=== PATIENT | female | born 1945 ===

== ENCOUNTER 2017-05-15 08:17 | Day surgery (SDC) | payer MEDICARE, MEDICAID ==
[2017-03-29 17:35] VITALS: BMI 34.6
[2017-05-15] MEDS ORDERED: Lactated Ringer's 1,000 ML IV ONE (08:30)
[2017-05-15] MEDS ORDERED: Midazolam 2 MG/2 ML VIAL ONE (09:08)
[2017-05-15] MEDS ORDERED: Propofol 10 mg/ml Inj (20 ML) ONE (09:08)
[2017-05-15 11:03] VITALS: BP 149/96; PULSE 96; RESP 18; TEMP 99; O2SAT 97
[2017-05-15] MEDS ORDERED: Iohexol 300 100 ML IJ ONE (14:00)
[2017-05-15] MEDS ORDERED: Sodium Chloride 0.9% 50 ML IV ONE (14:00)
== END 2017-05-15 11:00 | disposition home or self-care (01) ==
LOC: H.ENDO 08:17
PROVIDERS: ATTEND Internal Medicine Gastroenterology
DX: Z12.11 Encounter for screening for malignant neoplasm of colon (principal); D12.2 Benign neoplasm of ascending colon; K64.8 Other hemorrhoids
CPT/HCPCS: 45380; 88305; J2250; J2704; J7120; Q9967

== ENCOUNTER 2017-05-15 11:20 | Observation (INO) | payer MEDICARE, MEDICAID ==
[2017-05-15 11:20] VITALS: BMI 34.6
--- NOTE | 2017-05-15 11:41 | CP.PCM.CON ---
<Sofiya Lang - Last Filed: 05/15/17 13:32> History of Present Illness - History of Present Illness History of Present Illness: GI Fellow PGY4 Consult Note This is a 71yF with pmhx of HTN, HL, DM who initially presented to the GI office for change in bowel habits and dysphagia. Pt underwent a EGD/Colonoscopy today 05/15/17, EGD with gastritis, in colon there was a narrowing of the colon in association with the diverticular opening. A diverticulum with fat and muscle was seen. Three resolution clips were placed to close the opening. Procedure was aborted and pt was transferred to the ER after waking up from Anesthesia in post-op area. Pt was hemodynamically stable with no complaints of abdominal or back pain. Discussed results with patient and need for further workup and inpatient care. ROS: A 12pt ROS was negative except as above. PmHx: As stated in HPI PsHx: None SHx: Denies tobacco, alcohol, or drugs FHx: Denies colon cancer Past Patient History - Past Medical History & Family History Past Medical History?: Yes - Past Social History Smoking Status: Never Smoked - CARDIAC Hx Cardiac Disorders: Yes Hx Hypercholesterolemia: Yes Hx Hypertension: Yes - PULMONARY Hx Asthma: Yes - NEUROLOGICAL Hx Neurological Disorder: No - HEENT Hx HEENT Problems: No - RENAL Hx Chronic Kidney Disease: No - ENDOCRINE/METABOLIC Hx Endocrine Disorders: Yes Hx Diabetes Mellitus Type 2: Yes - HEMATOLOGICAL/ONCOLOGICAL Hx Blood Disorders: Yes Hx Cancer: (CERVICAL WITH RT) - INTEGUMENTARY Hx Dermatological Problems: No - MUSCULOSKELETAL/RHEUMATOLOGICAL Hx Arthritis: Yes (LOW BACK; KNEES; HANDS) Hx Osteoporosis: Yes (VIT D DEF. AWAITING BONE DENSITY) - GASTROINTESTINAL Hx Gastrointestinal Disorders: Yes Hx Hemorrhoids: Yes HX Swallowing Problems: Yes Hx Ulcer: Yes - GENITOURINARY/GYNECOLOGICAL Hx Genitourinary Disorders: Yes Hx Cervical Cancer: Yes Hx Incontinence: Yes (FREQUENCY) - PSYCHIATRIC Hx Substance Use: No - SURGICAL HISTORY Hx Surgeries: Yes Hx Hysterectomy: Yes - ANESTHESIA Hx Anesthesia: Yes Hx Anesthesia Reactions: No Hx Malignant Hyperthermia: No Meds Allergies/Adverse Reactions: Allergies Allergy/AdvReac Type Severity Reaction Status Date / Time Penicillins Allergy VOMITING Verified 05/15/17 08:39 sitagliptin [From Januvia] Allergy VOMITING Verified 05/15/17 08:39 Physical Exam - Constitutional Appears: Non-toxic, No Acute Distress - Head Exam Head Exam: ATRAUMATIC, NORMAL INSPECTION, NORMOCEPHALIC - Eye Exam Eye Exam: EOMI, Normal appearance, PERRL Pupil Exam: PERRL - ENT Exam ENT Exam: Mucous Membranes Moist, Normal Exam - Neck Exam Neck exam: Positive for: Normal Inspection - Respiratory Exam Respiratory Exam: Clear to Auscultation Bilateral, NORMAL BREATHING PATTERN - Cardiovascular Exam Cardiovascular Exam: REGULAR RHYTHM, RRR - GI/Abdominal Exam GI & Abdominal Exam: Normal Bowel Sounds, Soft. absent: Distended, Guarding, Rigid, Tenderness - Rectal Exam Rectal Exam: Deferred - Extremities Exam Extremities exam: Positive for: full ROM, normal inspection - Back Exam Back exam: NORMAL INSPECTION - Neurological Exam Neurological exam: Alert, Oriented x3 - Psychiatric Exam Psychiatric exam: Normal Affect, Normal Mood - Skin Skin Exam: Dry, Intact, Normal Color, Warm Results - Labs Result Diagrams: 05/15/17 12:43 05/15/17 12:43 Assessment & Plan - Assessment and Plan (Free Text) Assessment: This is a 71yF who presented for EGD/Colonoscopy as an outpatient found to have perforated diverticulum s/p 3 clips. 1. Perforated diverticulum s/p 3 clips 2. s/p EGD with gastritis Plan: -Continue supportive care with pain control and anti-emetics -Pt clinically stable with no abdominal pain, fevers, chills, no leukocytosis -Recommend IV abx -NPO -CT imaging of abdomen -Surgical consult for further evaluation and recommendations -Monitor labs and if any change in clinical status may need to be evaluated for surgical intervention -Will continue to follow closely <Della Barker MD - Last Filed: 05/15/17 16:53> Meds - Medications Medications: Current Medications Lactated Ringer's (Lactated Ringer's) 1,000 mls @ 100 mls/hr IV .Q10H [facility] Last Admin: 05/15/17 14:05 Dose: 100 mls/hr Ciprofloxacin (Cipro 400mg/200ml Dsw) 400 mg in 200 mls @ 200 mls/hr IVPB Q12 ROX PRN Reason: Protocol Metronidazole (Flagyl 500mg/100ml Ns) 100 mls @ 100 mls/hr IVPB Q8 ROX PRN Reason: Protocol Results - Vital Signs Recent Vital Signs: Last Vital Signs Temp 98.1 F 05/15/17 11:39 Pulse 87 05/15/17 11:39 Resp 19 05/15/17 11:39 BP 124/68 05/15/17 11:39 Pulse Ox 99 05/15/17 14:59 - Labs Result Diagrams: 05/15/17 12:43 05/15/17 12:43 Labs: Laboratory Results - last 24 hr 05/15/17 05/15/17 05/15/17 12:43 12:43 13:48 WBC 6.5 RBC 4.74 Hgb 13.0 Hct 39.7 MCV 83.7 MCH 27.5 MCHC 32.9 L RDW 16.0 H Plt Count 197 MPV 8.6 Neut % (Auto) 74.8 Lymph % (Auto) 15.0 L [place] % (Auto) 8.4 Eos % (Auto) 1.4 Baso % (Auto) 0.4 Neut # (Auto) 4.8 Lymph # (Auto) 1.0 [place] # (Auto) 0.5 Eos # (Auto) 0.1 Baso # (Auto) 0.0 Sodium 144 Potassium 3.8 Chloride 104 Carbon Dioxide 27 Anion Gap 17 BUN 11 Creatinine 0.5 L Est GFR ( Amer) > 60 Est GFR (Non-Af Amer) > 60 Random Glucose 134 H Calcium 9.5 Total Bilirubin 0.5 AST 50 H ALT 72 H Alkaline Phosphatase 60 Troponin I < 0.0120 Total Protein 7.7 Albumin 4.2 Globulin 3.5 Albumin/Globulin Ratio 1.2 Amylase 90 Lipase 55 Urine Color Yellow Urine Clarity Slighty-cloudy Urine pH 6.0 Ur Specific [place] 1.022 Urine Protein 100 Urine Glucose (UA) >=500 Urine Ketones Trace Urine Blood Negative Urine Nitrate Negative Urine Bilirubin Negative Urine Urobilinogen 0.2-1.0 Ur Leukocyte Esterase Neg Urine RBC (Auto) 5 H Urine Microscopic WBC 9 H Ur Squamous Epith Cells 1 Attending/Attestation - Attestation I have personally seen and examined this patient.: Yes I have fully participated in the care of the patient.: Yes I have reviewed all pertinent clinical information: Yes Notes (Text): 05/15/17 16:37 Patient seen in ER after colonoscopy. In a nutshell this is a 71 year old female , with a past medical history of diabetes, gastrointestinal ulcer, cervical CA and hypertension, who presented as outpatient for polyp surveillance and chronic abdominal pain. Colonoscopy was technically difficult with redundant colon. A colonoscopy in 2014 had similar findings. Multiple maneuvers with extrinsic pressure, and position change did not help to pass recto sigmoid area. A mucosal defect was seen during traversing the scope in recto sigmoid which was closed with 3 resolution clips. Patient was sent to the ER for Ct abdomen which shows intra peritoneal air. Patient denies any fever, chills, chest pain, shortness of breath or urinary symptoms. No fever and hemodynamically stable. Denies abdominal pain or tenderness. - Will admit to watch for 24 hours - Continue IV ciprofloxacin and flagyl - Trend daily fever and wbc curve - Clear liquid diet today - Appreciate prompt surgical consult - no indication for ex lap - Discussed in detail regarding the procedure and complication with patient and family member - Will follow clinical course closely
[2017-05-15] MEDS ORDERED: Ciprofloxacin 400mg/200ml D5W 400 MG/200 ML BAG IVPB STA (12:03)
[2017-05-15] MEDS ORDERED: metroNIDAZOLE 500mg/100ml NS 100 ML IVPB STA (12:03)
--- NOTE | 2017-05-15 12:38 | ED PDOC ---
HPI: Abdomen Time Seen by Provider: 05/15/17 11:58 Chief Complaint (Nursing): Abdominal Pain Chief Complaint (Provider): Abdominal pain History Per: Patient History/Exam Limitations: no limitations Onset/Duration Of Symptoms: Hrs (today) Current Symptoms Are (Timing): Still Present Quality Of Discomfort: "Pain" Associated Symptoms: denies: Fever, Chills, Chest Pain, Urinary Symptoms, Other (SOB) Additional Complaint(s): Janette Villa is a 71 year old female, with a past medical history of diabetes , gastrointestinal ulcer, cervical CA and hypertension, who was sent to the emergency department by Dr. Barker from endoscopy for abdominal pain. Patient denies any fever, chills, chest pain, shortness of breath or urinary symptoms. No further medical complaints. PMD: None provided. Past Medical History Reviewed: Historical Data, Nursing Documentation, Vital Signs Vital Signs: Last Vital Signs Temp 98.1 F 05/15/17 11:39 Pulse 87 05/15/17 11:39 Resp 19 05/15/17 11:39 BP 124/68 05/15/17 11:39 Pulse Ox 99 05/15/17 14:59 - Medical History PMH: Arthritis (LOW BACK; KNEES; HANDS), Asthma, Diabetes, Gastrointestinal Ulcer, HTN, Hypercholesterolemia, Malignancy (Cervical Cancer (20 years ago)), Osteoporosis (VIT D DEF. AWAITING BONE DENSITY) Denies: Chronic Kidney Disease - Surgical History Surgical History: Cholecystectomy, Endoscopy (5 years ago) - Family History Family History: States: Unknown Family Hx - Social History Current smoker - smoking cessation education provided: No Alcohol: None Drugs: Denies - Immunization History Hx Tetanus Toxoid Vaccination: No Hx Influenza Vaccination: No Hx Pneumococcal Vaccination: No (UNSURE of last vaccine date) - Home Medications Home Medications: Ambulatory Orders Medication Instructions Recorded MetFORMIN [glucoPHAGE] 1,000 mg PO BID 07/13/13 Atorvastatin [Lipitor] 40 mg PO HS 05/15/17 Cyanocobalamin [Vitamin B12 1000 1 tab PO DAILY 05/15/17 mcg Tab] Dulaglutide [Trulicity] 0.75 mg SC WE 05/15/17 Empagliflozin [Jardiance] 10 mg PO DAILY 05/15/17 Glimepiride [amaRYL] 4 mg PO DAILY 05/15/17 Insulin Glargine,Hum.rec.anlog 50 unit SC DAILY 05/15/17 [[place] Hailenallelyar] Lactobacillus Combination No.8 1 cap PO DAILY 05/15/17 [Adult Probiotic] Magnesium Oxide [Magox 400] 1 tab PO DAILY 05/15/17 [place]-3 Fatty Acids/Fish Oil [Fish 1 cap PO DAILY 05/15/17 Oil 1,000 mg Capsule] Omeprazole [Omeprazole] 40 mg PO DAILY 05/15/17 Tolterodine [Detrol] 2 mg PO BID 05/15/17 amLODIPine [Norvasc] 5 mg PO DAILY 05/15/17 - Allergies Allergies/Adverse Reactions: Allergies Allergy/AdvReac Type Severity Reaction Status Date / Time Penicillins Allergy VOMITING Verified 05/15/17 08:39 sitagliptin [From Januvia] Allergy VOMITING Verified 05/15/17 08:39 Review of Systems ROS Statement: Except As Marked, All Systems Reviewed And Found Negative Constitutional: Negative for: Fever, Chills Cardiovascular: Negative for: Chest Pain Respiratory: Negative for: Shortness of Breath Gastrointestinal: Positive for: Abdominal Pain Genitourinary Female: Negative for: Dysuria, Frequency, Incontinence Physical Exam - Reviewed Nursing Documentation Reviewed: Yes Vital Signs Reviewed: Yes - Physical Exam Appears: Positive for: Non-toxic Head Exam: Positive for: ATRAUMATIC, NORMAL INSPECTION, NORMOCEPHALIC Skin: Positive for: Normal Color, Warm, Dry Eye Exam: Positive for: Normal appearance, EOMI, PERRL Neck: Positive for: Painless ROM, Supple Cardiovascular/Chest: Positive for: Regular Rate, Rhythm. Negative for: Murmur Respiratory: Positive for: Normal Breath Sounds. Negative for: Respiratory Distress Gastrointestinal/Abdominal: Positive for: Soft, Other (prev vertical suprapubic scar). Negative for: Tenderness, Organomegaly, Mass, Distended, Guarding Back: Positive for: Normal Inspection. Negative for: L CVA Tenderness, R CVA Tenderness, Vertebral Tenderness Extremity: Positive for: Normal ROM. Negative for: Tenderness, Pedal Edema, Deformity, Swelling Neurologic/Psych: Positive for: Alert, Oriented (x3) - Laboratory Results Result Diagrams: 05/15/17 12:43 05/15/17 12:43 - ECG O2 Sat by Pulse Oximetry: 99 (RA) Pulse Ox Interpretation: Normal - Progress ED Course And Treament: per hospitalist will admit to ms floor. surgery consulted advise antibiotics and no other intervention at this time. repeat abds exam revelas no tenderness. pt agree's with plan. Re-evaluation Time: 15:00 Condition: Re-examined Medical Decision Making Medical Decision Making: Initial Impression: Abdominal pain Initial Plan: --Abdomen & Pelvis IV contrast only [CT] --EKG --Amylase --CMP --Lipase --Troponin I --CBC w/ differential --Cipro 400mg/200 ml DSW 400 mg in 200 ml IVPB --Flagyl 500mg/100 ml NS 100 ml IVPB --Urine culture --Urinalysis --reevaluation --Contacted residential director who evaluated the patient and advised her to get a CT with IV contrast only. 13:56 CXR FINDINGS: LUNGS: Clear. PLEURA: No pneumothorax or pleural fluid seen. CARDIOVASCULAR: Normal. OSSEOUS STRUCTURES: Degenerative changes. VISUALIZED UPPER ABDOMEN: Right upper quadrant surgical clips. OTHER FINDINGS: None. IMPRESSION: No active disease. No appreciable free intraperitoneal air. 14:48 Abdomen/Pelvis CT FINDINGS: LOWER THORAX: Unremarkable. LIVER: Hepatic steatosis. No gross lesion or ductal dilatation. GALLBLADDER AND BILE DUCTS: Prior cholecystectomy with surgical clips in place and expected prominence of the CBD. PANCREAS: Unremarkable. No gross lesion or ductal dilatation. SPLEEN: Unremarkable. ADRENALS: Unremarkable. No mass. KIDNEYS AND URETERS: Unremarkable. No hydronephrosis. No solid mass. VASCULATURE: Unremarkable. No aortic aneurysm. BOWEL: Surgical clips seen in the sigmoid. No obstruction. No gross mural thickening. APPENDIX: Not visualized. PERITONEUM: Unremarkable. No free fluid. Moderate amount of free intraperitoneal air. LYMPH NODES: Pelvic lymph node dissection. No enlarged lymph nodes. BLADDER: Unremarkable. REPRODUCTIVE: Surgically absent. BONES: No acute fracture. OTHER FINDINGS: None. IMPRESSION: Moderate amount of free intraperitoneal and retroperitoneal air post colonoscopy. Given the reported perforated diverticulum seen on optical colonoscopy status post clip placement, the findings are nonspecific and may represent acute perforation versus insufflated air leaking through perforated diverticulum prior to closure. Additional findings as above. Findings conveyed to Dr. Meyer by Dr. De La Rosa shortly after completion of the examination. Scribe Attestation: Documented by Cristo Domingo, acting as a scribe for Yoni Meyer MD Provider Scribe Attestation: All medical record entries made by the Scribe were at my direction and personally dictated by me. I have reviewed the chart and agree that the record accurately reflects my personal performance of the history, physical exam, medical decision making, and the department course for this patient. I have also personally directed, reviewed, and agree with the discharge instructions and disposition. Disposition - Clinical Impression Clinical Impression: Abdominal pain, Large bowel perforation - Patient ED Disposition Is Patient to be Admitted: No Counseled Patient/Family Regarding: Studies Performed, Diagnosis, Need For Followup - Disposition Disposition Time: 15:00 Condition: STABLE - Pt Status Changed To: Hospital Disposition Of: Inpatient - Admit Certification Admit to Inpatient:: After my assessment, the patient will require hospitalization for at least two midnights. This is because of the severity of symptoms shown, intensity of services needed, and/or the medical risk in this patient being treated as an outpatient. - POA Present On Arrival: None
[2017-05-15 12:53] LABS: BASO % 0.4 % (0.0-2.0); EOS # 0.1 K/uL (0.0-0.7); EOS % 1.4 % (0.0-4.0); MEAN CELL VOLUME 83.7 fl (81.0-99.0); MEAN CORPUSCULAR HEMOGLOBIN 27.5 pg (27.0-31.0); MEAN CORPUSCULAR HGB CONC 32.9 g/dL (33.0-37.0); MEAN PLATELET VOLUME 8.6 fl (7.2-11.7); MONO # 0.5 K/uL (0.0-0.8); MONO % 8.4 % (0.0-10.0); NEUT # 4.8 K/uL (1.8-7.0); NEUT % 74.8 % (50.0-75.0); NRBC % 0.1 % (0.0-0.0); RBC 4.74 Mil/uL (3.80-5.20); WHITE BLOOD COUNT 6.5 K/uL (4.8-10.8)
[2017-05-15 13:09] LABS: ALB/GLOB RATIO 1.2 (1.0-2.1); ALBUMIN 4.2 g/dL (3.5-5.0); ALT/SGPT 72 U/L (9-52); AMYLASE 90 U/L (30-110); AST/SGOT 50 U/L (14-36); BLOOD UREA NITROGEN 11 mg/dl (7-17); CALCIUM 9.5 mg/dL (8.4-10.2); GFR AFRICAN-AMERICAN > 60; GFR NON-AFRICAN AMERICAN > 60; LIPASE 55 U/L (23-300)
--- NOTE | 2017-05-15 13:58 | RAD ---
PROCEDURE: CHEST RADIOGRAPH, 1 VIEW HISTORY: eval for free air under diaphragm COMPARISON: None available. FINDINGS: LUNGS: Clear. PLEURA: No pneumothorax or pleural fluid seen. CARDIOVASCULAR: Normal. OSSEOUS STRUCTURES: Degenerative changes. VISUALIZED UPPER ABDOMEN: Right upper quadrant surgical clips. OTHER FINDINGS: None. IMPRESSION: No active disease. No appreciable free intraperitoneal air.
[2017-05-15 13:59] LABS: SQUAMOUS EPITHIAL 1 /hpf (0-5); URINE BILIRUBIN NEGATIVE (NEGATIVE); URINE BLOOD NEGATIVE (NEGATIVE); URINE CLARITY SLIGHTY-CLOUDY (Clear); URINE COLOR YELLOW (YELLOW); URINE GLUCOSE (UA) >=500 mg/dL (Normal); URINE LEUKOCYTE ESTERASE NEG Leu/uL (Negative); URINE NITRATE NEGATIVE (NEGATIVE); URINE PROTEIN 100 mg/dL (NEGATIVE); URINE UROBILINOGEN 0.2-1.0 mg/dL (0.2-1.0)
[2017-05-15] MEDS: Lactated Ringer's 1,000 ML IV SCH ×2 (14:05→23:20)
--- NOTE | 2017-05-15 14:31 | CARD ---
APPROVED REPORT EKG Measurement Heart [id number] <Conclusion> Normal sinus rhythm Normal ECG
[2017-05-15] MEDS ORDERED: metroNIDAZOLE 500mg/100ml NS 100 ML IVPB ONE ×2 (14:37→18:23)
[2017-05-15] MEDS ORDERED: Ciprofloxacin 400mg/200ml D5W 400 MG/200 ML BAG IVPB ONE (14:37)
--- NOTE | 2017-05-15 14:50 | CT ---
PROCEDURE: CT Abdomen and Pelvis with contrast HISTORY: abd pain llq possible perf on colonoscopy. Reported perforated diverticulum seen on colonoscopy. COMPARISON: None. TECHNIQUE: Contrast dose: 100 cc Omnipaque 300 Radiation dose: Total exam DLP = 901.1 mGy-cm. This CT exam was performed using one or more of the following dose reduction techniques: Automated exposure control, adjustment of the mA and/or kV according to patient size, and/or use of iterative reconstruction technique. FINDINGS: LOWER THORAX: Unremarkable. LIVER: Hepatic steatosis. No gross lesion or ductal dilatation. GALLBLADDER AND BILE DUCTS: Prior cholecystectomy with surgical clips in place and expected prominence of the CBD. PANCREAS: Unremarkable. No gross lesion or ductal dilatation. SPLEEN: Unremarkable. ADRENALS: Unremarkable. No mass. KIDNEYS AND URETERS: Unremarkable. No hydronephrosis. No solid mass. VASCULATURE: Unremarkable. No aortic aneurysm. BOWEL: Surgical clips seen in the sigmoid. No obstruction. No gross mural thickening. APPENDIX: Not visualized. PERITONEUM: Unremarkable. No free fluid. Moderate amount of free intraperitoneal air. LYMPH NODES: Pelvic lymph node dissection. No enlarged lymph nodes. BLADDER: Unremarkable. REPRODUCTIVE: Surgically absent. BONES: No acute fracture. OTHER FINDINGS: None. IMPRESSION: Moderate amount of free intraperitoneal and retroperitoneal air post colonoscopy. Given the reported perforated diverticulum seen on optical colonoscopy status post clip placement, the findings are nonspecific and may represent acute perforation versus insufflated air leaking through perforated diverticulum prior to closure. Additional findings as above. Findings conveyed to Dr. Meyer by Dr. De La Rosa shortly after completion of the examination.
--- NOTE | 2017-05-15 15:06 | CP.PCM.CON ---
History of Present Illness - History of Present Illness History of Present Illness: General Surgery Consult Note - Dr. Millan 71 y/o female with PMHx of diabetes, cervical cancer, OA and asthma seen at bedside after surgery team consulted for evaluation and management of a perforated sigmoid colon. Pt states she came today for a routine colonoscopy and was informed that part of her colon had a hole in it. Pt admits to mild- moderate RLQ abdominal pain that radiates to the back. She admits to having this pain for approx 1 year, stating she saw a doctor for it but nothing was done to address it. Pt states she has this pain when she goes from sitting to standing and vice versa, but says it is not tender to touch. Denies any F/C/N/V/ CP. Admits to constipation which is chronic in nature. Admits to urinary incontinence, which she has had for 10+ years. PSH: cholecystectomy, tubal ligation, surgical removal of cervix s/p cancer All: PCNs, sitagliptin Soc: denies EtOH, cigarette or illicit drug use Review of Systems - Review of Systems All systems: reviewed and no additional remarkable complaints except (per HPI) Past Patient History - Infectious Disease Hx of Infectious Diseases: None - Past Medical History & Family History Past Medical History?: Yes - Past Social History Alcohol: None Drugs: Denies - CARDIAC Hx Hypercholesterolemia: Yes Hx Hypertension: Yes - PULMONARY Hx Asthma: Yes - NEUROLOGICAL Hx Neurological Disorder: No - HEENT Hx HEENT Problems: No - RENAL Hx Chronic Kidney Disease: No - ENDOCRINE/METABOLIC Hx Endocrine Disorders: Yes Hx Diabetes Mellitus Type 2: Yes - HEMATOLOGICAL/ONCOLOGICAL Hx Blood Disorders: Yes Hx Cancer: (CERVICAL WITH RT) - INTEGUMENTARY Hx Dermatological Problems: No - MUSCULOSKELETAL/RHEUMATOLOGICAL Hx Arthritis: Yes (LOW BACK; KNEES; HANDS) Hx Osteoporosis: Yes (VIT D DEF. AWAITING BONE DENSITY) - GASTROINTESTINAL Hx Gastrointestinal Disorders: Yes Hx Hemorrhoids: Yes HX Swallowing Problems: Yes Hx Ulcer: Yes - GENITOURINARY/GYNECOLOGICAL Hx Genitourinary Disorders: Yes Hx Cervical Cancer: Yes Hx Incontinence: Yes (FREQUENCY) - PSYCHIATRIC Hx Substance Use: No - SURGICAL HISTORY Hx Cholecystectomy: Yes - ANESTHESIA Hx Anesthesia: Yes Hx Anesthesia Reactions: No Hx Malignant Hyperthermia: No Meds Allergies/Adverse Reactions: Allergies Allergy/AdvReac Type Severity Reaction Status Date / Time Penicillins Allergy VOMITING Verified 05/15/17 08:39 sitagliptin [From Januvsebastien] Allergy VOMITING Verified 05/15/17 08:39 - Medications Medications: Current Medications Lactated Ringer's (Lactated Ringer's) 1,000 mls @ 100 mls/hr IV .Q10H R[facility] Last Admin: 05/15/17 14:05 Dose: 100 mls/hr Physical Exam - Constitutional Appears: Well, Non-toxic - GI/Abdominal Exam Additional comments: RLQ non-tender to palpation, minimally distended - Neurological Exam Neurological exam: Alert, Oriented x3 - Psychiatric Exam Psychiatric exam: Normal Affect, Normal Mood - Skin Skin Exam: Dry, Intact, Normal Color Results - Vital Signs Recent Vital Signs: Last Vital Signs Temp 98.1 F 05/15/17 11:39 Pulse 87 05/15/17 11:39 Resp 19 05/15/17 11:39 BP 124/68 05/15/17 11:39 Pulse Ox 99 05/15/17 14:59 - Labs Result Diagrams: 05/15/17 12:43 05/15/17 12:43 Labs: Laboratory Results - last 24 hr 05/15/17 05/15/17 05/15/17 12:43 12:43 13:48 WBC 6.5 RBC 4.74 Hgb 13.0 Hct 39.7 MCV 83.7 MCH 27.5 MCHC 32.9 L RDW 16.0 H Plt Count 197 MPV 8.6 Neut % (Auto) 74.8 Lymph % (Auto) 15.0 L [place] % (Auto) 8.4 Eos % (Auto) 1.4 Baso % (Auto) 0.4 Neut # (Auto) 4.8 Lymph # (Auto) 1.0 [place] # (Auto) 0.5 Eos # (Auto) 0.1 Baso # (Auto) 0.0 Sodium 144 Potassium 3.8 Chloride 104 Carbon Dioxide 27 Anion Gap 17 BUN 11 Creatinine 0.5 L Est GFR ( Amer) > 60 Est GFR (Non-Af Amer) > 60 Random Glucose 134 H Calcium 9.5 Total Bilirubin 0.5 AST 50 H ALT 72 H Alkaline Phosphatase 60 Troponin I < 0.0120 Total Protein 7.7 Albumin 4.2 Globulin 3.5 Albumin/Globulin Ratio 1.2 Amylase 90 Lipase 55 Urine Color Yellow Urine Clarity Slighty-cloudy Urine pH 6.0 Ur Specific [place] 1.022 Urine Protein 100 Urine Glucose (UA) >=500 Urine Ketones Trace Urine Blood Negative Urine Nitrate Negative Urine Bilirubin Negative Urine Urobilinogen 0.2-1.0 Ur Leukocyte Esterase Neg Urine RBC (Auto) 5 H Urine Microscopic WBC 9 H Ur Squamous Epith Cells 1 Assessment & Plan - Assessment and Plan (Free Text) Assessment: 71 y/o female with incidental colon perforation found on colonoscopy Plan: Pt hemodynamically stable Perforation closed with clips x3 during colonoscopy CT scan demonstrated minimal free air Will manage conservatively Empiric abx, NPO, IVF Will consider diet advancement tomorrow Discussed with Dr. Millan
--- NOTE | 2017-05-15 16:15 | CP.PCM.HP ---
History of Present Illness - History of Present Illness History of Present Illness: CC: abdominal pain HPI: The patient is a 71 y/o woman w/ pmh of diabetes, gastrointestinal ulcer, cervical CA and hypertension sent to ED by endoscopy for abdominal pain. The patient had colonoscopy today and found to have a perforation, which was clipped. Patient seen in ED and currently denies abdominal pain. Patient reports mild tension headache but denies dizziness, chest pain, SOB, nausea, vomiting, diarrhea, dysuria, or fever. Patient reports she is a [employer]. ED course: vitals: 98.1 F, 87 beats/min, 124/68 mm Hg, resp 19, O2 99% RA CBC w/ differential: 6.5>13.0/39.7<197 CMP: 144/3.8, 104/27, 11/0.5, glucose 134, AST 50, ALT 72, alk phos 60 Amylase: 90 Lipase: 55 Troponin I: <0.0120 Urine culture: pending Urinalysis: slightly-cloudy, protein 100, glucose >500, ketones trace, negative for blood, nitrate, bilirubin, leukocyte esterase CXR: no active disease process, no intraperitoneal free air CT Abdomen & Pelvis IV contrast only: moderate amount of free intraperitoneal and retroperitoneal air post colonoscopy. Reported perforated diverticulum on optical colonoscopy s/p clip placement. Findings nonspecific and may represent acute perforation vs. insufflated air leaking through perforated diverticulum prior to closure. EKG: NSR, no acute changes, no ST elevation/depression, no prolonged QTc, QRS, or [place], no inverted T wave Cipro 400mg/200 ml DSW 400 mg in 200 ml IVPB Flagyl 500mg/100 ml NS 100 ml IVPB IVF LR @ 100 mL/hr PMD: Dr. [place] PMH: diabetes, gastrointestinal ulcer, cervical CA and hypertension allergies: NKDA meds: see med list PSH: total hysterectomy >20 years ago, cholecystectomy >10 years ago Fam: non-contributory SOC: denies smoking, alcohol, and drugs; patient reports she is a [employer] ROS: 12 points assessed and negative unless otherwise reported in HPI Present on Admission - Present on Admission Any Indicators Present on Admission: No History of DVT/PE: No History of Uncontrolled Diabetes: No Urinary Catheter: No Decubitus Ulcer Present: No Review of Systems - Review of Systems All systems: reviewed and no additional remarkable complaints except - Constitutional Constitutional: absent: Chills, Fever - EENT Eyes: absent: Change in Vision - Cardiovascular Cardiovascular: absent: Chest Pain, Leg Edema, Palpitations, Pedal Edema - Respiratory Respiratory: absent: Wheezing - Gastrointestinal Gastrointestinal: As Per HPI. absent: Abdominal Pain, Diarrhea, Nausea, Vomiting - Genitourinary Genitourinary: absent: Dysuria - Reproductive: Female Reproductive:Female: S/P Hysterectomy, Post Menopausal - Menstruation Menstruation: Post Menopausal - Integumentary Integumentary: absent: Rash - Neurological Neurological: absent: Dizziness Past Patient History - Infectious Disease Hx of Infectious Diseases: None - Past Medical History & Family History Past Medical History?: Yes - Past Social History Alcohol: None Drugs: Denies - CARDIAC Hx Hypercholesterolemia: Yes Hx Hypertension: Yes - PULMONARY Hx Asthma: Yes - NEUROLOGICAL Hx Neurological Disorder: No - HEENT Hx HEENT Problems: No - RENAL Hx Chronic Kidney Disease: No - ENDOCRINE/METABOLIC Hx Endocrine Disorders: Yes Hx Diabetes Mellitus Type 2: Yes - HEMATOLOGICAL/ONCOLOGICAL Hx Blood Disorders: Yes Hx Cancer: (CERVICAL WITH RT) - INTEGUMENTARY Hx Dermatological Problems: No - MUSCULOSKELETAL/RHEUMATOLOGICAL Hx Arthritis: Yes (LOW BACK; KNEES; HANDS) Hx Osteoporosis: Yes (VIT D DEF. AWAITING BONE DENSITY) - GASTROINTESTINAL Hx Gastrointestinal Disorders: Yes Hx Hemorrhoids: Yes HX Swallowing Problems: Yes Hx Ulcer: Yes - GENITOURINARY/GYNECOLOGICAL Hx Genitourinary Disorders: Yes Hx Cervical Cancer: Yes Hx Incontinence: Yes (FREQUENCY) - PSYCHIATRIC Hx Substance Use: No - SURGICAL HISTORY Hx Cholecystectomy: Yes - ANESTHESIA Hx Anesthesia: Yes Hx Anesthesia Reactions: No Hx Malignant Hyperthermia: No Meds Allergies/Adverse Reactions: Allergies Allergy/AdvReac Type Severity Reaction Status Date / Time Penicillins Allergy VOMITING Verified 05/15/17 08:39 sitagliptin [From Januvia] Allergy VOMITING Verified 05/15/17 08:39 Physical Exam - Constitutional Appears: No Acute Distress - Head Exam Head Exam: ATRAUMATIC, NORMAL INSPECTION, NORMOCEPHALIC - Eye Exam Eye Exam: Normal appearance - ENT Exam ENT Exam: Mucous Membranes Moist - Neck Exam Neck exam: Positive for: Full Rom, Normal Inspection. Negative for: Tenderness - Respiratory Exam Respiratory Exam: Clear to Auscultation Bilateral, NORMAL BREATHING PATTERN. absent: Decreased Breath Sounds, Rales, Rhonchi, Wheezes, Respiratory Distress - Cardiovascular Exam Cardiovascular Exam: REGULAR RHYTHM. absent: Tachycardia - GI/Abdominal Exam GI & Abdominal Exam: Normal Bowel Sounds, Soft. absent: Distended, Firm, Guarding, Rigid, Tenderness - Extremities Exam Extremities exam: Positive for: normal inspection. Negative for: calf tenderness, pedal edema, tenderness - Neurological Exam Neurological exam: Alert, Oriented x3 - Skin Skin Exam: Dry, Intact, Normal Color, Warm Results - Vital Signs Recent Vital Signs: Last Vital Signs Temp 98.1 F 05/15/17 11:39 Pulse 87 05/15/17 11:39 Resp 19 05/15/17 11:39 BP 124/68 05/15/17 11:39 Pulse Ox 99 05/15/17 14:59 - Labs Result Diagrams: 05/15/17 12:43 05/15/17 12:43 Labs: Laboratory Results - last 24 hr 05/15/17 05/15/17 05/15/17 12:43 12:43 13:48 WBC 6.5 RBC 4.74 Hgb 13.0 Hct 39.7 MCV 83.7 MCH 27.5 MCHC 32.9 L RDW 16.0 H Plt Count 197 MPV 8.6 Neut % (Auto) 74.8 Lymph % (Auto) 15.0 L Yancey % (Auto) 8.4 Eos % (Auto) 1.4 Baso % (Auto) 0.4 Neut # (Auto) 4.8 Lymph # (Auto) 1.0 Yancey # (Auto) 0.5 Eos # (Auto) 0.1 Baso # (Auto) 0.0 Sodium 144 Potassium 3.8 Chloride 104 Carbon Dioxide 27 Anion Gap 17 BUN 11 Creatinine 0.5 L Est GFR ( Amer) > 60 Est GFR (Non-Af Amer) > 60 Random Glucose 134 H Calcium 9.5 Total Bilirubin 0.5 AST 50 H ALT 72 H Alkaline Phosphatase 60 Troponin I < 0.0120 Total Protein 7.7 Albumin 4.2 Globulin 3.5 Albumin/Globulin Ratio 1.2 Amylase 90 Lipase 55 Urine Color Yellow Urine Clarity Slighty-cloudy Urine pH 6.0 Ur Specific [place] 1.022 Urine Protein 100 Urine Glucose (UA) >=500 Urine Ketones Trace Urine Blood Negative Urine Nitrate Negative Urine Bilirubin Negative Urine Urobilinogen 0.2-1.0 Ur Leukocyte Esterase Neg Urine RBC (Auto) 5 H Urine Microscopic WBC 9 H Ur Squamous Epith Cells 1 Assessment & Plan - Assessment and Plan (Free Text) Assessment: The patient is a 71 y/o woman w/ pmh of diabetes, gastrointestinal ulcer, cervical CA and hypertension sent to ED by endoscopy for abdominal pain. Plan: Abdominal Pain - patient currently denies pain - s/p colonoscopy this morning, had clipped perforated diverticulum - CT Abdomen & Pelvis IV contrast only: moderate amount of free intraperitoneal and retroperitoneal air post colonoscopy. Reported perforated diverticulum on optical colonoscopy s/p clip placement. Findings nonspecific and may represent acute perforation vs. insufflated air leaking through perforated diverticulum prior to closure - CBC w/ differential: 6.5>13.0/39.7<197 - CMP: 144/3.8, 104/27, 11/0.5, glucose 134, AST 50, ALT 72, alk phos 60 - Amylase: 90 - Lipase: 55 - Ciprofloxacin 400 mg IV Q12h - Metronidazole 500 mg IV Q8h - IVF LR @100 mL/Hr - liquid diet as per GI - GI consulted, Dr. Barker, recommendations appreciated - Surgery consulted, Dr. Millan, recommendations appreciated - f/u CBC, CMP - admit to MedSurg DM2 - HbA1c 8.5% (12/12/2016) - Home meds: trulicity 0.75mg SC weekly, jardiance 10 mg PO daily, glimepiride 4 mg PO daily, insulin glargine 50 unit, metformin 1000 mg PO BID - c/w home meds HTN - controlled w/ medication - home med: amlodipine 5 mg PO daily - c/w home med HLD - atorvastatin 40 mg PO daily gastric ulcer - omeprazole 40 mg PO daily cervical cancer - s/p total hysterectomy >20 years ago Prophylactic measures - DVT: SCDs - GI: PPI
--- NOTE | 2017-05-15 17:39 | CP.PCM.PCO ---
Physician Communication Note - Physician Communication Note Physician Communication Note: SCDs as per recommended by GI
[2017-05-15] MEDS: metroNIDAZOLE 500mg/100ml NS 100 ML IVPB SCH (18:17)
[2017-05-15] MEDS: Ciprofloxacin 400mg/200ml D5W 400 MG/200 ML BAG IVPB SCH (22:31)
[2017-05-16] MEDS: metroNIDAZOLE 500mg/100ml NS 100 ML IVPB SCH ×4 (01:15→21:27)
[2017-05-16 06:38] LABS: HEMOGLOBIN 12.6 g/dL (12.0-16.0); MEAN CELL VOLUME 83.7 fl (81.0-99.0); MEAN CORPUSCULAR HEMOGLOBIN 27.7 pg (27.0-31.0); MEAN CORPUSCULAR HGB CONC 33.1 g/dL (33.0-37.0); RBC 4.55 Mil/uL (3.80-5.20); WHITE BLOOD COUNT 9.2 K/uL (4.8-10.8)
--- NOTE | 2017-05-16 07:39 | CP.PCM.PN ---
<Janes Barrow - Last Filed: 05/16/17 13:26> Subjective - Date & Time of Evaluation Date of Evaluation: 05/16/17 Time of Evaluation: 07:30 - Subjective Subjective: Patient seen and examined bedside this morning. There are no acute events overnight, NAD. The patient reports discomfort and minimal pain. The patient is on liquid diet and tolerating w/ no issue. The patient has been seen by GI and surgery this morning. The patient denies headaches, dizziness, chest pain, SOB, nausea, vomiting, diarrhea, dysuria, or fever. Objective - Vital Signs/Intake and Output Vital Signs (last 24 hours): Temp Pulse Resp BP Pulse Ox 98.5 F 85 18 109/67 95 05/15/17 23:44 05/15/17 23:44 05/15/17 23:44 05/15/17 23:44 05/15/17 23:44 - Medications Medications: Current Medications Amlodipine Besylate (Norvasc) 5 mg PO DAILY [facility] Atorvastatin Calcium (Lipitor) 40 mg PO HS [facility] Last Admin: 05/15/17 21:13 Dose: 40 mg Cyanocobalamin (Vitamin B12 1000 Mcg Tab) 1,000 mcg PO DAILY [facility] Glipizide (Glucotrol Xl) 10 mg PO BRK [facility] Home Med (Dulaglutide [Trulicity]) 0.75 mg SC WE [facility] Home Med (Empagliflozin [Jardiance]) 10 mg PO DAILY [facility] Lactated Ringer's (Lactated Ringer's) 1,000 mls @ 100 mls/hr IV .Q10H [facility] Last Admin: 05/15/17 23:20 Dose: Not Given Ciprofloxacin (Cipro 400mg/200ml Dsw) 400 mg in 200 mls @ 200 mls/hr IVPB Q12 ROX PRN Reason: Protocol Last Admin: 05/15/17 22:31 Dose: 200 mls/hr Metronidazole (Flagyl 500mg/100ml Ns) 100 mls @ 100 mls/hr IVPB Q8 ROX PRN Reason: Protocol Last Admin: 05/16/17 01:15 Dose: 100 mls/hr Insulin Detemir (Levemir) 40 units SC DAILY [facility] Magnesium Oxide (Mag-Ox) 400 mg PO DAILY [facility] Metformin HCl (Glucophage) 1,000 mg PO BID [facility] Last Admin: 05/15/17 18:20 Dose: 1,000 mg Morphine Sulfate (Morphine) 1 mg IVP Q12 PRN PRN Reason: Pain, moderate (4-7) Pantoprazole Sodium (Protonix Inj) 40 mg IVP DAILY [facility] Tolterodine Tartrate (Detrol) 2 mg PO BID [facility] Last Admin: 05/15/17 21:12 Dose: 2 mg - Labs Labs: 05/16/17 06:10 05/15/17 12:43 - Constitutional Appears: No Acute Distress - Head Exam Head Exam: ATRAUMATIC, NORMAL INSPECTION, NORMOCEPHALIC - Eye Exam Eye Exam: Normal appearance - ENT Exam ENT Exam: Mucous Membranes Moist - Neck Exam Neck Exam: Full ROM. absent: Tenderness - Respiratory Exam Respiratory Exam: Clear to Ausculation Bilateral. absent: Decreased Breath Sounds, Rales, Rhonchi, Wheezes, Respiratory Distress - Cardiovascular Exam Cardiovascular Exam: REGULAR RHYTHM, RRR. absent: Tachycardia - GI/Abdominal Exam GI & Abdominal Exam: Soft, Tenderness, Normal Bowel Sounds. absent: Distended, Guarding, Rigid - Extremities Exam Extremities Exam: Normal Inspection. absent: Calf Tenderness, Pedal Edema, Tenderness - Neurological Exam Neurological Exam: Alert, Awake, Oriented x3 - Skin Skin Exam: Dry, Intact, Normal Color, Warm Assessment and Plan - Assessment and Plan (Free Text) Assessment: The patient is a 71 y/o woman w/ pmh of diabetes, gastrointestinal ulcer, cervical CA and hypertension sent to ED by endoscopy for abdominal pain. Plan: Abdominal Pain 2/2 clipped perforated diverticulum - patient reports discomfort and mild pain - s/p colonoscopy this 05/15/2017, had perforated diverticulum clipped - CT Abdomen & Pelvis IV contrast only: moderate amount of free intraperitoneal and retroperitoneal air post colonoscopy. Reported perforated diverticulum on optical colonoscopy s/p clip placement. Findings nonspecific and may represent acute perforation vs. insufflated air leaking through perforated diverticulum prior to closure - CBC w/ differential: 9.2>12.6/38.1<190 - CMP: 140/4.1, 101/26, 17/0.6, glucose 177, AST 39, ALT 62, alk phos 53 - Amylase: 90 - Lipase: 55 - Ciprofloxacin 400 mg IV Q12h day 2 - Metronidazole 500 mg IV Q8h day 2 - IVF LR @100 mL/Hr - liquid diet as per GI - advance diet as tolerated - GI consulted, Dr. Barker, recommendations appreciated - Surgery consulted, Dr. Millan, recommendations appreciated - CT abdomen and pelvis w/ PO and IV contrast tomorrow morning as per GI - f/u CBC and CMP DM2 - HbA1c 8.5% (12/12/2016) - Home meds: trulicity 0.75mg SC weekly, jardiance 10 mg PO daily, glimepiride 4 mg PO daily, insulin glargine 50 unit, metformin 1000 mg PO BID - c/w home meds HTN - controlled w/ medication - home med: amlodipine 5 mg PO daily - c/w home med HLD - atorvastatin 40 mg PO daily gastric ulcer - omeprazole 40 mg PO daily cervical cancer - s/p total hysterectomy >20 years ago Prophylactic measures - DVT: SCDs - GI: PPI <Nahed Haq - Last Filed: 05/17/17 09:32> Objective - Vital Signs/Intake and Output Vital Signs (last 24 hours): Temp Pulse Resp BP Pulse Ox 98.4 F 97 H 20 141/80 96 05/17/17 08:51 05/17/17 08:51 05/17/17 08:51 05/17/17 08:51 05/17/17 08:51 - Medications Medications: Current Medications Amlodipine Besylate (Norvasc) 5 mg PO DAILY [facility] Last Admin: 05/16/17 09:15 Dose: 5 mg Atorvastatin Calcium (Lipitor) 40 mg PO HS [facility] Last Admin: 05/16/17 23:57 Dose: 40 mg Cyanocobalamin (Vitamin B12 1000 Mcg Tab) 1,000 mcg PO DAILY [facility] Last Admin: 05/16/17 09:16 Dose: 1,000 mcg Glipizide (Glucotrol Xl) 10 mg PO BRK [facility] Last Admin: 05/16/17 09:14 Dose: 10 mg Home Med (Dulaglutide [Trulicity]) 0.75 mg SC WE [facility] Home Med (Empagliflozin [Jardiance]) 10 mg PO DAILY [facility] Lactated Ringer's (Lactated Ringer's) 1,000 mls @ 100 mls/hr IV .Q10H [facility] Last Admin: 05/17/17 05:00 Dose: Not Given Ciprofloxacin (Cipro 400mg/200ml Dsw) 400 mg in 200 mls @ 200 mls/hr IVPB Q12@ 0000,1200 ROX PRN Reason: Protocol Last Admin: 05/16/17 23:58 Dose: 200 mls/hr Metronidazole (Flagyl 500mg/100ml Ns) 100 mls @ 100 mls/hr IVPB Q8@0500,1300, 2100 ROX PRN Reason: Protocol Last Admin: 05/17/17 05:11 Dose: 100 mls/hr Insulin Detemir (Levemir) 40 units SC DAILY [facility] Last Admin: 05/16/17 09:28 Dose: Not Given Lactic Acid (Lac-Hydrin 12% Lotion (225 G)) 1 applic TOP TID [facility] Magnesium Oxide (Mag-Ox) 400 mg PO DAILY [facility] Last Admin: 05/16/17 09:15 Dose: 400 mg Metformin HCl (Glucophage) 1,000 mg PO BID [facility] Last Admin: 05/16/17 16:22 Dose: 1,000 mg Morphine Sulfate (Morphine) 1 mg IVP Q12 PRN PRN Reason: Pain, moderate (4-7) Last Admin: 05/16/17 16:20 Dose: 1 mg Pantoprazole Sodium (Protonix Inj) 40 mg IVP DAILY [facility] Last Admin: 05/16/17 09:19 Dose: 40 mg Tolterodine Tartrate (Detrol) 2 mg PO BID [facility] Last Admin: 05/16/17 16:22 Dose: 2 mg - Labs Labs: 05/17/17 04:50 05/17/17 04:50 Attending/Attestation - Attestation I have personally seen and examined this patient.: Yes I have fully participated in the care of the patient.: Yes I have reviewed all pertinent clinical information, including history, physical exam and plan: Yes Notes (Text): 05/17/17 09:32 ATTESTATION - ATTENDING NOTE PATIENT SEEN AND EXAMINED. CASE DISCUSSED WITH RESIDENT. AGREE WITH FINDINGS AND PLAN.
[2017-05-16 08:22] LABS: ALB/GLOB RATIO 1.2 (1.0-2.1); ALBUMIN 3.9 g/dL (3.5-5.0); ALT/SGPT 62 U/L (9-52); AST/SGOT 39 U/L (14-36); BLOOD UREA NITROGEN 7 mg/dl (7-17); CALCIUM 9.4 mg/dL (8.4-10.2); GFR AFRICAN-AMERICAN > 60; GFR NON-AFRICAN AMERICAN > 60
--- NOTE | 2017-05-16 08:23 | CP.PCM.PN ---
Subjective - Date & Time of Evaluation Date of Evaluation: 05/16/17 Time of Evaluation: 08:40 - Subjective Subjective: General Surgery: Dr Millan Pt S&E. [facility]. Reports mild pain to LLQ. Tolerating CLD. Had BM last night. Denies N/V, F/C. VSS. Afebrile Objective - Vital Signs/Intake and Output Vital Signs (last 24 hours): Temp Pulse Resp BP Pulse Ox 98.5 F 85 18 109/67 95 05/15/17 23:44 05/15/17 23:44 05/15/17 23:44 05/15/17 23:44 05/15/17 23:44 - Medications Medications: Current Medications Amlodipine Besylate (Norvasc) 5 mg PO DAILY [facility] Atorvastatin Calcium (Lipitor) 40 mg PO HS [facility] Last Admin: 05/15/17 21:13 Dose: 40 mg Cyanocobalamin (Vitamin B12 1000 Mcg Tab) 1,000 mcg PO DAILY [facility] Glipizide (Glucotrol Xl) 10 mg PO BRK [facility] Home Med (Dulaglutide [Trulicity]) 0.75 mg SC WE [facility] Home Med (Empagliflozin [Jardiance]) 10 mg PO DAILY [facility] Lactated Ringer's (Lactated Ringer's) 1,000 mls @ 100 mls/hr IV .Q10H [facility] Last Admin: 05/15/17 23:20 Dose: Not Given Ciprofloxacin (Cipro 400mg/200ml Dsw) 400 mg in 200 mls @ 200 mls/hr IVPB Q12 ROX PRN Reason: Protocol Last Admin: 05/15/17 22:31 Dose: 200 mls/hr Metronidazole (Flagyl 500mg/100ml Ns) 100 mls @ 100 mls/hr IVPB Q8 ROX PRN Reason: Protocol Last Admin: 05/16/17 01:15 Dose: 100 mls/hr Insulin Detemir (Levemir) 40 units SC DAILY [facility] Magnesium Oxide (Mag-Ox) 400 mg PO DAILY [facility] Metformin HCl (Glucophage) 1,000 mg PO BID [facility] Last Admin: 05/15/17 18:20 Dose: 1,000 mg Morphine Sulfate (Morphine) 1 mg IVP Q12 PRN PRN Reason: Pain, moderate (4-7) Pantoprazole Sodium (Protonix Inj) 40 mg IVP DAILY [facility] Tolterodine Tartrate (Detrol) 2 mg PO BID [facility] Last Admin: 05/15/17 21:12 Dose: 2 mg - Labs Labs: 05/16/17 06:10 05/16/17 07:50 - Constitutional Appears: Non-toxic, No Acute Distress - Eye Exam Eye Exam: Normal appearance - ENT Exam ENT Exam: Mucous Membranes Moist - Respiratory Exam Respiratory Exam: absent: Accessory Muscle Use, Respiratory Distress - Cardiovascular Exam Cardiovascular Exam: absent: Tachycardia - GI/Abdominal Exam GI & Abdominal Exam: Soft, Tenderness (LLQ but minimal). absent: Distended, Firm, Guarding, Rigid - Neurological Exam Neurological Exam: Alert, Awake, Oriented x3 Assessment and Plan - Assessment and Plan (Free Text) Assessment: 71F w/ perforated diverticulum s/p clipping during colonoscopy Plan: pt clinically stable no surgical intervention at this time will continue to follow adv diet as per GI recommendations d/w Dr Monty Cancino, PGY3
--- NOTE | 2017-05-16 08:26 | CP.PCM.PN ---
<Sofiya Lang - Last Filed: 05/16/17 12:17> Subjective - Date & Time of Evaluation Date of Evaluation: 05/16/17 Time of Evaluation: 07:15 - Subjective Subjective: GI Fellow PGY4 Progress Note Pt seen and evaluated at bedside, pt doing well with no nausea, vomiting, fevers or chills. Pt is tolerating clear liquid diet. Pt reports mild to moderate LLQ pain on exertion. Pt has liquid BM overnight with some discomfort. ROS: A 12pt ROS was negative except as above. Objective - Vital Signs/Intake and Output Vital Signs (last 24 hours): Temp Pulse Resp BP Pulse Ox 98.5 F 85 18 109/67 95 05/15/17 23:44 05/15/17 23:44 05/15/17 23:44 05/15/17 23:44 05/15/17 23:44 - Medications Medications: Current Medications Amlodipine Besylate (Norvasc) 5 mg PO DAILY [facility] Atorvastatin Calcium (Lipitor) 40 mg PO HS [facility] Last Admin: 05/15/17 21:13 Dose: 40 mg Cyanocobalamin (Vitamin B12 1000 Mcg Tab) 1,000 mcg PO DAILY [facility] Glipizide (Glucotrol Xl) 10 mg PO BRK [facility] Home Med (Dulaglutide [Trulicity]) 0.75 mg SC WE [facility] Home Med (Empagliflozin [Jardiance]) 10 mg PO DAILY [facility] Lactated Ringer's (Lactated Ringer's) 1,000 mls @ 100 mls/hr IV .Q10H [facility] Last Admin: 05/15/17 23:20 Dose: Not Given Ciprofloxacin (Cipro 400mg/200ml Dsw) 400 mg in 200 mls @ 200 mls/hr IVPB Q12 [facility] PRN Reason: Protocol Last Admin: 05/15/17 22:31 Dose: 200 mls/hr Metronidazole (Flagyl 500mg/100ml Ns) 100 mls @ 100 mls/hr IVPB Q8 [facility] PRN Reason: Protocol Last Admin: 05/16/17 01:15 Dose: 100 mls/hr Insulin Detemir (Levemir) 40 units SC DAILY [facility] Magnesium Oxide (Mag-Ox) 400 mg PO DAILY [facility] Metformin HCl (Glucophage) 1,000 mg PO BID [facility] Last Admin: 05/15/17 18:20 Dose: 1,000 mg Morphine Sulfate (Morphine) 1 mg IVP Q12 PRN PRN Reason: Pain, moderate (4-7) Pantoprazole Sodium (Protonix Inj) 40 mg IVP DAILY [facility] Tolterodine Tartrate (Detrol) 2 mg PO BID [facility] Last Admin: 05/15/17 21:12 Dose: 2 mg - Labs Labs: 05/16/17 06:10 05/16/17 07:50 - Constitutional Appears: Non-toxic, No Acute Distress - Head Exam Head Exam: ATRAUMATIC, NORMAL INSPECTION, NORMOCEPHALIC - Eye Exam Eye Exam: EOMI, Normal appearance, PERRL - ENT Exam ENT Exam: Mucous Membranes Moist - Respiratory Exam Respiratory Exam: Clear to Ausculation Bilateral, NORMAL BREATHING PATTERN - Cardiovascular Exam Cardiovascular Exam: REGULAR RHYTHM - GI/Abdominal Exam GI & Abdominal Exam: Soft, Tenderness, Normal Bowel Sounds. absent: Distended, Rigid, Organomegaly - Rectal Exam Rectal Exam: Deferred - Extremities Exam Extremities Exam: Full ROM, Normal Inspection - Back Exam Back Exam: NORMAL INSPECTION - Neurological Exam Neurological Exam: Alert, Awake, Oriented x3 - Psychiatric Exam Psychiatric exam: Normal Affect, Normal Mood - Skin Skin Exam: Dry, Intact, Normal Color, Warm Assessment and Plan - Assessment and Plan (Free Text) Assessment: This is a 71yF who presented for EGD/Colonoscopy as an outpatient found to have perforated diverticulum s/p 3 clips. 1. Perforated diverticulum s/p 3 clips 2. s/p EGD with gastritis Plan: -Continue supportive care with pain control and anti-emetics -Pt clinically stable with mild abdominal pain, no fevers, chills, no leukocytosis -Recommend IV abx, can chnage to po abx on discharge home -Clear liquid diet will advance as tolerated today -CT imaging of abdomen reviewed, no plan for any surgery at this time, appreciate surgical recommendations -Recommend repeat imaging possible abdominal xray prior to discharge home -Will continue to follow closely <Della Barker MD - Last Filed: 05/16/17 12:37> Objective - Vital Signs/Intake and Output Vital Signs (last 24 hours): Temp Pulse Resp BP Pulse Ox 99.6 F 93 H 20 128/73 94 L 05/16/17 08:44 05/16/17 09:15 05/16/17 08:44 05/16/17 09:15 05/16/17 08:44 - Medications Medications: Current Medications Amlodipine Besylate (Norvasc) 5 mg PO DAILY [facility] Last Admin: 05/16/17 09:15 Dose: 5 mg Atorvastatin Calcium (Lipitor) 40 mg PO HS [facility] Last Admin: 05/15/17 21:13 Dose: 40 mg Cyanocobalamin (Vitamin B12 1000 Mcg Tab) 1,000 mcg PO DAILY [facility] Last Admin: 05/16/17 09:16 Dose: 1,000 mcg Glipizide (Glucotrol Xl) 10 mg PO BRK [facility] Last Admin: 05/16/17 09:14 Dose: 10 mg Home Med (Dulaglutide [Trulicity]) 0.75 mg SC WE [facility] Home Med (Empagliflozin [Jardiance]) 10 mg PO DAILY [facility] Lactated Ringer's (Lactated Ringer's) 1,000 mls @ 100 mls/hr IV .Q10H [facility] Last Admin: 05/16/17 09:19 Dose: 100 mls/hr Ciprofloxacin (Cipro 400mg/200ml Dsw) 400 mg in 200 mls @ 200 mls/hr IVPB Q12 [facility] PRN Reason: Protocol Last Admin: 05/15/17 22:31 Dose: 200 mls/hr Metronidazole (Flagyl 500mg/100ml Ns) 100 mls @ 100 mls/hr IVPB Q8 [facility] PRN Reason: Protocol Last Admin: 05/16/17 01:15 Dose: 100 mls/hr Insulin Detemir (Levemir) 40 units SC DAILY [facility] Last Admin: 05/16/17 09:28 Dose: Not Given Magnesium Oxide (Mag-Ox) 400 mg PO DAILY [facility] Last Admin: 05/16/17 09:15 Dose: 400 mg Metformin HCl (Glucophage) 1,000 mg PO BID [facility] Last Admin: 05/16/17 09:14 Dose: 1,000 mg Morphine Sulfate (Morphine) 1 mg IVP Q12 PRN PRN Reason: Pain, moderate (4-7) Pantoprazole Sodium (Protonix Inj) 40 mg IVP DAILY [facility] Last Admin: 05/16/17 09:19 Dose: 40 mg Tolterodine Tartrate (Detrol) 2 mg PO BID [facility] Last Admin: 05/16/17 09:13 Dose: 2 mg - Labs Labs: 05/16/17 06:10 05/16/17 07:50 Attending/Attestation - Attestation I have personally seen and examined this patient.: Yes I have fully participated in the care of the patient.: Yes I have reviewed all pertinent clinical information, including history, physical exam and plan: Yes Notes (Text): 05/16/17 12:35 Patient seen in the room this am. In a nutshell this is a 71 year old female, with a past medical history of diabetes, gastrointestinal ulcer, cervical CA and hypertension, who presented as outpatient for polyp surveillance and chronic abdominal pain. Colonoscopy was technically difficult with redundant colon. A colonoscopy in 2014 had similar findings. Multiple maneuvers with extrinsic pressure, and position change did not help to pass recto sigmoid area. A mucosal defect was seen during traversing the scope in recto sigmoid which was closed with [address] abdomen shows intra peritoneal air. Patient denies any fever, chills, chest pain, shortness of breath or urinary symptoms. No fever and hemodynamically stable. Denies abdominal pain or tenderness. - Continue IV ciprofloxacin and flagyl - Trend daily fever and wbc curve - Advance diet as tolerated - Repeat Ct abdomen in am to see air resolution - Appreciate prompt surgical consult - no indication for ex lap - Discussed in detail regarding the procedure and complication with patient and family member - Will follow clinical course closely
[2017-05-16] MEDS: Insulin Detemir 100 Units/ml Inj SC SCH ×2 (09:14→09:28)
[2017-05-16] MEDS: GlipiZIDE 10 mg SR Tab PO SCH (09:14)
[2017-05-16] MEDS: Magnesium Oxide 400 mg Tab UD PO SCH (09:15)
[2017-05-16] MEDS: Lactated Ringer's 1,000 ML IV SCH (09:19)
[2017-05-16] MEDS ORDERED: Iohexol 240 (50 ml) PO ONE (12:57)
[2017-05-16] MEDS: Ciprofloxacin 400mg/200ml D5W 400 MG/200 ML BAG IVPB SCH ×2 (13:08→23:58)
[2017-05-17] MEDS: Lactated Ringer's 1,000 ML IV SCH (05:00)
[2017-05-17] MEDS: metroNIDAZOLE 500mg/100ml NS 100 ML IVPB SCH (05:11)
--- NOTE | 2017-05-17 06:37 | CP.PCM.PN ---
<Sofiya Lang - Last Filed: 05/17/17 14:06> Subjective - Date & Time of Evaluation Date of Evaluation: 05/17/17 Time of Evaluation: 12:15 - Subjective Subjective: GI Fellow PGY4 Progress Note Pt seen and evaluated at bedside, pt doing well with no nausea, vomiting, fevers or chills. Pt is tolerating full liquid diet. Pt reports improving LLQ pain on exertion. Pt with soft moderate BM overnight. Not requiring pain medication. ROS: A 12pt ROS was negative except as above. Objective - Vital Signs/Intake and Output Vital Signs (last 24 hours): Temp Pulse Resp BP Pulse Ox 98.5 F 94 H 18 122/74 95 05/17/17 00:32 05/17/17 00:32 05/17/17 00:32 05/17/17 00:32 05/17/17 00:32 - Medications Medications: Current Medications Amlodipine Besylate (Norvasc) 5 mg PO DAILY [facility] Last Admin: 05/16/17 09:15 Dose: 5 mg Atorvastatin Calcium (Lipitor) 40 mg PO HS [facility] Last Admin: 05/16/17 23:57 Dose: 40 mg Cyanocobalamin (Vitamin B12 1000 Mcg Tab) 1,000 mcg PO DAILY [facility] Last Admin: 05/16/17 09:16 Dose: 1,000 mcg Glipizide (Glucotrol Xl) 10 mg PO BRK [facility] Last Admin: 05/16/17 09:14 Dose: 10 mg Home Med (Dulaglutide [Trulicity]) 0.75 mg SC WE [facility] Home Med (Empagliflozin [Jardiance]) 10 mg PO DAILY [facility] Lactated Ringer's (Lactated Ringer's) 1,000 mls @ 100 mls/hr IV .Q10H [facility] Last Admin: 05/17/17 05:00 Dose: Not Given Ciprofloxacin (Cipro 400mg/200ml Dsw) 400 mg in 200 mls @ 200 mls/hr IVPB Q12@ 0000,1200 [facility] PRN Reason: Protocol Last Admin: 05/16/17 23:58 Dose: 200 mls/hr Metronidazole (Flagyl 500mg/100ml Ns) 100 mls @ 100 mls/hr IVPB Q8@0500,1300, 2100 [facility] PRN Reason: Protocol Last Admin: 05/17/17 05:11 Dose: 100 mls/hr Insulin Detemir (Levemir) 40 units SC DAILY [facility] Last Admin: 05/16/17 09:28 Dose: Not Given Magnesium Oxide (Mag-Ox) 400 mg PO DAILY [facility] Last Admin: 05/16/17 09:15 Dose: 400 mg Metformin HCl (Glucophage) 1,000 mg PO BID [facility] Last Admin: 05/16/17 16:22 Dose: 1,000 mg Morphine Sulfate (Morphine) 1 mg IVP Q12 PRN PRN Reason: Pain, moderate (4-7) Last Admin: 05/16/17 16:20 Dose: 1 mg Pantoprazole Sodium (Protonix Inj) 40 mg IVP DAILY [facility] Last Admin: 05/16/17 09:19 Dose: 40 mg Tolterodine Tartrate (Detrol) 2 mg PO BID [facility] Last Admin: 05/16/17 16:22 Dose: 2 mg - Labs Labs: 05/16/17 06:10 05/16/17 07:50 - Constitutional Appears: Non-toxic, No Acute Distress - Head Exam Head Exam: ATRAUMATIC, NORMAL INSPECTION, NORMOCEPHALIC - Eye Exam Eye Exam: EOMI, Normal appearance, PERRL Pupil Exam: PERRL - ENT Exam ENT Exam: Mucous Membranes Moist - Neck Exam Neck Exam: Full ROM - Respiratory Exam Respiratory Exam: Clear to Ausculation Bilateral, NORMAL BREATHING PATTERN - Cardiovascular Exam Cardiovascular Exam: REGULAR RHYTHM, RRR - GI/Abdominal Exam GI & Abdominal Exam: Soft, Normal Bowel Sounds. absent: Distended, Guarding, Rigid, Tenderness - Extremities Exam Extremities Exam: Normal Inspection - Back Exam Back Exam: NORMAL INSPECTION - Neurological Exam Neurological Exam: Alert, Awake, Oriented x3 - Psychiatric Exam Psychiatric exam: Normal Affect, Normal Mood - Skin Skin Exam: Dry, Intact, Normal Color, Warm Assessment and Plan - Assessment and Plan (Free Text) Assessment: This is a 71yF who presented for EGD/Colonoscopy as an outpatient found to have perforated diverticulum s/p 3 clips. 1. Perforated diverticulum s/p 3 clips 2. s/p EGD with gastritis Plan: -Continue supportive care with pain control and anti-emetics -Pt clinically stable with improving mild abdominal pain, no fevers, chills, no leukocytosis -Continue IV abx, can change to po abx on discharge home -Full liquid diet will advance as tolerated today -CT imaging of abdomen reviewed, no plan for any surgery at this time, appreciate surgical recommendations -Will repeat CT imaging today to see if resolution in air -Will continue to follow closely and if CT okay can dc home on po abx and outpt follow up <Della Barker MD - Last Filed: 05/17/17 16:19> Objective - Vital Signs/Intake and Output Vital Signs (last 24 hours): Temp Pulse Resp BP Pulse Ox 98.4 F 97 H 20 141/80 96 05/17/17 08:51 05/17/17 10:26 05/17/17 08:51 05/17/17 10:26 05/17/17 08:51 - Labs Labs: 05/17/17 04:50 05/17/17 04:50 Attending/Attestation - Attestation I have personally seen and examined this patient.: Yes I have fully participated in the care of the patient.: Yes I have reviewed all pertinent clinical information, including history, physical exam and plan: Yes Notes (Text): 05/17/17 16:17 Patient seen in the room this am. In a nutshell this is a 71 year old female, with a past medical history of diabetes, gastrointestinal ulcer, cervical CA and hypertension, who presented as outpatient for polyp surveillance and chronic abdominal pain. Colonoscopy was technically difficult with redundant colon. A colonoscopy in 2013 had similar findings. Multiple maneuvers with extrinsic pressure, and position change did not help to pass recto sigmoid area. A mucosal defect was seen during traversing the scope in recto sigmoid which was closed with [address] abdomen showed intra peritoneal air. Patient denies any fever, chills, chest pain, shortness of breath or urinary symptoms. No fever and hemodynamically stable. Denies abdominal pain or tenderness. Tolerating regular diet. Repeat Ct shows resolution of air (first CT shows intraperitoneal which may have leaked prior to clip placement). Complete 10 day course of cipro and flagyl po and follow in my office next week. Discussed with Dr Millan- no indication for surgery
[2017-05-17 06:46] LABS: HEMOGLOBIN 13.5 g/dL (12.0-16.0); MEAN CELL VOLUME 84.5 fl (81.0-99.0); MEAN CORPUSCULAR HEMOGLOBIN 27.3 pg (27.0-31.0); MEAN CORPUSCULAR HGB CONC 32.3 g/dL (33.0-37.0); RBC 4.96 Mil/uL (3.80-5.20); WHITE BLOOD COUNT 9.1 K/uL (4.8-10.8)
[2017-05-17] MEDS ORDERED: Iohexol 240 (50 ml) ONE (06:51)
[2017-05-17] MEDS ORDERED: Iohexol 240 (50 ml) PO ONE (06:54)
[2017-05-17 07:25] LABS: ALB/GLOB RATIO 1.1 (1.0-2.1); ALBUMIN 3.9 g/dL (3.5-5.0); ALT/SGPT 45 U/L (9-52); AST/SGOT 34 U/L (14-36); BLOOD UREA NITROGEN 6 mg/dl (7-17); CALCIUM 9.4 mg/dL (8.4-10.2); GFR AFRICAN-AMERICAN > 60; GFR NON-AFRICAN AMERICAN > 60
--- NOTE | 2017-05-17 07:51 | CP.PCM.PN ---
Subjective - Date & Time of Evaluation Date of Evaluation: 05/17/17 Time of Evaluation: 07:51 Objective - Vital Signs/Intake and Output Vital Signs (last 24 hours): Temp Pulse Resp BP Pulse Ox 98.5 F 94 H 18 122/74 95 05/17/17 00:32 05/17/17 00:32 05/17/17 00:32 05/17/17 00:32 05/17/17 00:32 - Medications Medications: Current Medications Amlodipine Besylate (Norvasc) 5 mg PO DAILY [facility] Last Admin: 05/16/17 09:15 Dose: 5 mg Atorvastatin Calcium (Lipitor) 40 mg PO HS [facility] Last Admin: 05/16/17 23:57 Dose: 40 mg Cyanocobalamin (Vitamin B12 1000 Mcg Tab) 1,000 mcg PO DAILY [facility] Last Admin: 05/16/17 09:16 Dose: 1,000 mcg Glipizide (Glucotrol Xl) 10 mg PO BRK [facility] Last Admin: 05/16/17 09:14 Dose: 10 mg Home Med (Dulaglutide [Trulicity]) 0.75 mg SC WE [facility] Home Med (Empagliflozin [Jardiance]) 10 mg PO DAILY [facility] Lactated Ringer's (Lactated Ringer's) 1,000 mls @ 100 mls/hr IV .Q10H [facility] Last Admin: 05/17/17 05:00 Dose: Not Given Ciprofloxacin (Cipro 400mg/200ml Dsw) 400 mg in 200 mls @ 200 mls/hr IVPB Q12@ 0000,1200 [facility] PRN Reason: Protocol Last Admin: 05/16/17 23:58 Dose: 200 mls/hr Metronidazole (Flagyl 500mg/100ml Ns) 100 mls @ 100 mls/hr IVPB Q8@0500,1300, 2100 [facility] PRN Reason: Protocol Last Admin: 05/17/17 05:11 Dose: 100 mls/hr Insulin Detemir (Levemir) 40 units SC DAILY [facility] Last Admin: 05/16/17 09:28 Dose: Not Given Magnesium Oxide (Mag-Ox) 400 mg PO DAILY [facility] Last Admin: 05/16/17 09:15 Dose: 400 mg Metformin HCl (Glucophage) 1,000 mg PO BID [facility] Last Admin: 05/16/17 16:22 Dose: 1,000 mg Morphine Sulfate (Morphine) 1 mg IVP Q12 PRN PRN Reason: Pain, moderate (4-7) Last Admin: 05/16/17 16:20 Dose: 1 mg Pantoprazole Sodium (Protonix Inj) 40 mg IVP DAILY [facility] Last Admin: 05/16/17 09:19 Dose: 40 mg Tolterodine Tartrate (Detrol) 2 mg PO BID [facility] Last Admin: 05/16/17 16:22 Dose: 2 mg - Labs Labs: 05/17/17 04:50 05/17/17 04:50
[2017-05-17 08:51] VITALS: BP 141/80; PULSE 97; RESP 20; TEMP 98.4; O2SAT 96
[2017-05-17] MEDS ORDERED: Sodium Chloride 0.9% 50 ML IV ONE (09:58)
[2017-05-17] MEDS ORDERED: Iohexol 300 100 ML IJ ONE (09:58)
[2017-05-17] MEDS: GlipiZIDE 10 mg SR Tab PO SCH (10:01)
[2017-05-17] MEDS: Magnesium Oxide 400 mg Tab UD PO SCH (10:26)
[2017-05-17] MEDS: Insulin Detemir 100 Units/ml Inj SC SCH ×2 (10:26→10:31)
[2017-05-17] MEDS ORDERED: DiphenhydrAMINE 12.5 mg/5 ml LIQ UD (5 ml) PO ONE (11:15)
[2017-05-17] MEDS: Ciprofloxacin 400mg/200ml D5W 400 MG/200 ML BAG IVPB SCH (11:30)
[2017-05-17] MEDS ORDERED: JARDIANCE 10 MG PO SCH (12:30)
--- NOTE | 2017-05-17 13:15 | CP.PCM.DIS ---
<Malika Shannon - Last Filed: 05/17/17 13:13> Provider - Provider Date of Admission: 05/15/17 15:11 Attending physician: Mercedes Teague MD Time Spent in preparation of Discharge (in minutes): 30 Diagnosis - Discharge Diagnosis (1) Abdominal pain Status: Acute (2) Large bowel perforation Status: Acute Hospital Course - Lab Results Lab Results: Most Recent Lab Values WBC 9.1 K/uL (4.8-10.8) 05/17/17 04:50 RBC 4.96 Mil/uL (3.80-5.20) 05/17/17 04:50 Hgb 13.5 g/dL (12.0-16.0) 05/17/17 04:50 Hct 41.9 % (34.0-47.0) 05/17/17 04:50 MCV 84.5 fl (81.0-99.0) 05/17/17 04:50 MCH 27.3 pg (27.0-31.0) 05/17/17 04:50 MCHC 32.3 g/dL (33.0-37.0) L 05/17/17 04:50 RDW 16.0 % (11.5-14.5) H 05/17/17 04:50 Plt Count 214 K/uL (130-400) 05/17/17 04:50 MPV 8.6 fl (7.2-11.7) 05/15/17 12:43 Neut % (Auto) 74.8 % (50.0-75.0) 05/15/17 12:43 Lymph % (Auto) 15.0 % (20.0-40.0) L 05/15/17 12:43 [place] % (Auto) 8.4 % (0.0-10.0) 05/15/17 12:43 Eos % (Auto) 1.4 % (0.0-4.0) 05/15/17 12:43 Baso % (Auto) 0.4 % (0.0-2.0) 05/15/17 12:43 Neut # (Auto) 4.8 K/uL (1.8-7.0) 05/15/17 12:43 Lymph # (Auto) 1.0 K/uL (1.0-4.3) 05/15/17 12:43 [place] # (Auto) 0.5 K/uL (0.0-0.8) 05/15/17 12:43 Eos # (Auto) 0.1 K/uL (0.0-0.7) 05/15/17 12:43 Baso # (Auto) 0.0 K/uL (0.0-0.2) 05/15/17 12:43 Sodium 141 mmol/l (132-148) 05/17/17 04:50 Potassium 3.9 MMOL/L (3.6-5.0) 05/17/17 04:50 Chloride 102 mmol/L (98-107) 05/17/17 04:50 Carbon Dioxide 25 mmol/L (22-30) 05/17/17 04:50 Anion Gap 18 (10-20) 05/17/17 04:50 BUN 6 mg/dl (7-17) L 05/17/17 04:50 Creatinine 0.6 mg/dl (0.7-1.2) L 05/17/17 04:50 Est GFR ( Amer) > 60 05/17/17 04:50 Est GFR (Non-Af Amer) > 60 05/17/17 04:50 POC Glucose (mg/dL) 191 mg/dL (65-110) H 05/17/17 06:42 Random Glucose 221 mg/dL (65-105) H 05/17/17 04:50 Calcium 9.4 mg/dL (8.4-10.2) 05/17/17 04:50 Total Bilirubin 0.8 mg/dl (0.2-1.3) 05/17/17 04:50 AST 34 U/L (14-36) 05/17/17 04:50 ALT 45 U/L (9-52) 05/17/17 04:50 Alkaline Phosphatase 58 U/L (38-126) 05/17/17 04:50 Troponin I < 0.0120 ng/mL (0.00-0.120) 05/15/17 12:43 Total Protein 7.4 G/DL (6.3-8.2) 05/17/17 04:50 Albumin 3.9 g/dL (3.5-5.0) 05/17/17 04:50 Globulin 3.4 gm/dL (2.2-3.9) 05/17/17 04:50 Albumin/Globulin Ratio 1.1 (1.0-2.1) 05/17/17 04:50 Amylase 90 U/L (30-110) 05/15/17 12:43 Lipase 55 U/L (23-300) 05/15/17 12:43 Urine Color Yellow (YELLOW) 05/15/17 13:48 Urine Clarity Slighty-cloudy (Clear) 05/15/17 13:48 Urine pH 6.0 (5.0-8.0) 05/15/17 13:48 Ur Specific [place] 1.022 (1.003-1.030) 05/15/17 13:48 Urine Protein 100 mg/dL (NEGATIVE) 05/15/17 13:48 Urine Glucose (UA) >=500 mg/dL (Normal) 05/15/17 13:48 Urine Ketones Trace mg/dL (NEGATIVE) 05/15/17 13:48 Urine Blood Negative (NEGATIVE) 05/15/17 13:48 Urine Nitrate Negative (NEGATIVE) 05/15/17 13:48 Urine Bilirubin Negative (NEGATIVE) 05/15/17 13:48 Urine Urobilinogen 0.2-1.0 mg/dL (0.2-1.0) 05/15/17 13:48 Ur Leukocyte Esterase Neg Keysha/uL (Negative) 05/15/17 13:48 Urine RBC (Auto) 5 /hpf (0-3) H 05/15/17 13:48 Urine Microscopic WBC 9 /hpf (0-5) H 05/15/17 13:48 Ur Squamous Epith Cells 1 /hpf (0-5) 05/15/17 13:48 - Hospital Course Hospital Course: The patient is a 71 y/o woman w/ pmh of diabetes, gastrointestinal ulcer, cervical CA and hypertension sent to ED by endoscopy for abdominal pain. The patient had colonoscopy on 05/15 and found to have a perforated diverticulum, which was clipped. Patient was seen in ED and denied abdominal pain. Patient had normal VS, CBC WNL, mildly elevated AST and ALT but otherwise CMP WNL. The abd CT showed intraperitoneal and retroperitoneal air after the colonoscopy, but CXR done 1 hour later showed no intraperitoneal free air. The patient was seen by surgery and GI and deemed to not require Patient put on liquid diet and advanced as tolerated. Patient denies headache, denies dizziness, chest pain, SOB, nausea, vomiting, diarrhea, dysuria, or fever. The patient is to follow up w/ pmd and GI. The patient is also medically optimized to return to senior care facility and resume activities as tolerated. Patient to continue cipro 500 mg PO Q12 and flagyl 500 mg PO Q6 for 7 more days. Discharge Exam - Head Exam Head Exam: ATRAUMATIC, NORMAL INSPECTION, NORMOCEPHALIC - Eye Exam Eye Exam: Normal appearance - Respiratory Exam Respiratory Exam: Clear to PA & Lateral. absent: Wheezes, Respiratory Distress - Cardiovascular Exam Cardiovascular Exam: REGULAR RHYTHM, +S1, +S2 - GI/Abdominal Exam GI & Abdominal Exam: Soft. absent: Tenderness - Neurological Exam Neurological exam: Alert, CN II-XII Intact, Oriented x3 - Skin Skin Exam: Normal Color, Warm Discharge Plan - Discharge Medications Prescriptions: Ciprofloxacin HCl [Cipro] 500 mg PO Q12 7 Days tablet Metronidazole [Flagyl] 500 mg PO Q6 7 Days tablet - Follow Up Plan Condition: STABLE Disposition: HOME/ ROUTINE Instructions: Acute Abdominal Pain (DC), Acute Abdominal Pain (GEN) Additional Instructions: Patient is stable to return to adult day care Referrals: [facility] [Provider Group] <Nahed Haq - Last Filed: 05/18/17 08:47> Provider - Provider Date of Admission: 05/15/17 15:11 Attending physician: Mercedes Teague MD Hospital Course - Lab Results Lab Results: Micro Results 05/15/17 13:48 Urine,Clean Catch Urine Culture - Final No Growth (<1,000 CFU/ML) Most Recent Lab Values WBC 9.1 K/uL (4.8-10.8) 05/17/17 04:50 RBC 4.96 Mil/uL (3.80-5.20) 05/17/17 04:50 Hgb 13.5 g/dL (12.0-16.0) 05/17/17 04:50 Hct 41.9 % (34.0-47.0) 05/17/17 04:50 MCV 84.5 fl (81.0-99.0) 05/17/17 04:50 MCH 27.3 pg (27.0-31.0) 05/17/17 04:50 MCHC 32.3 g/dL (33.0-37.0) L 05/17/17 04:50 RDW 16.0 % (11.5-14.5) H 05/17/17 04:50 Plt Count 214 K/uL (130-400) 05/17/17 04:50 MPV 8.6 fl (7.2-11.7) 05/15/17 12:43 Neut % (Auto) 74.8 % (50.0-75.0) 05/15/17 12:43 Lymph % (Auto) 15.0 % (20.0-40.0) L 05/15/17 12:43 [place] % (Auto) 8.4 % (0.0-10.0) 05/15/17 12:43 Eos % (Auto) 1.4 % (0.0-4.0) 05/15/17 12:43 Baso % (Auto) 0.4 % (0.0-2.0) 05/15/17 12:43 Neut # (Auto) 4.8 K/uL (1.8-7.0) 05/15/17 12:43 Lymph # (Auto) 1.0 K/uL (1.0-4.3) 05/15/17 12:43 [place] # (Auto) 0.5 K/uL (0.0-0.8) 05/15/17 12:43 Eos # (Auto) 0.1 K/uL (0.0-0.7) 05/15/17 12:43 Baso # (Auto) 0.0 K/uL (0.0-0.2) 05/15/17 12:43 Sodium 141 mmol/l (132-148) 05/17/17 04:50 Potassium 3.9 MMOL/L (3.6-5.0) 05/17/17 04:50 Chloride 102 mmol/L (98-107) 05/17/17 04:50 Carbon Dioxide 25 mmol/L (22-30) 05/17/17 04:50 Anion Gap 18 (10-20) 05/17/17 04:50 BUN 6 mg/dl (7-17) L 05/17/17 04:50 Creatinine 0.6 mg/dl (0.7-1.2) L 05/17/17 04:50 Est GFR ( Amer) > 60 05/17/17 04:50 Est GFR (Non-Af Amer) > 60 05/17/17 04:50 POC Glucose (mg/dL) 236 mg/dL (65-110) H 05/17/17 11:26 Random Glucose 221 mg/dL (65-105) H 05/17/17 04:50 Calcium 9.4 mg/dL (8.4-10.2) 05/17/17 04:50 Total Bilirubin 0.8 mg/dl (0.2-1.3) 05/17/17 04:50 AST 34 U/L (14-36) 05/17/17 04:50 ALT 45 U/L (9-52) 05/17/17 04:50 Alkaline Phosphatase 58 U/L (38-126) 05/17/17 04:50 Troponin I < 0.0120 ng/mL (0.00-0.120) 05/15/17 12:43 Total Protein 7.4 G/DL (6.3-8.2) 05/17/17 04:50 Albumin 3.9 g/dL (3.5-5.0) 05/17/17 04:50 Globulin 3.4 gm/dL (2.2-3.9) 05/17/17 04:50 Albumin/Globulin Ratio 1.1 (1.0-2.1) 05/17/17 04:50 Amylase 90 U/L (30-110) 05/15/17 12:43 Lipase 55 U/L (23-300) 05/15/17 12:43 Urine Color Yellow (YELLOW) 05/15/17 13:48 Urine Clarity Slighty-cloudy (Clear) 05/15/17 13:48 Urine pH 6.0 (5.0-8.0) 05/15/17 13:48 Ur Specific [place] 1.022 (1.003-1.030) 05/15/17 13:48 Urine Protein 100 mg/dL (NEGATIVE) 05/15/17 13:48 Urine Glucose (UA) >=500 mg/dL (Normal) 05/15/17 13:48 Urine Ketones Trace mg/dL (NEGATIVE) 05/15/17 13:48 Urine Blood Negative (NEGATIVE) 05/15/17 13:48 Urine Nitrate Negative (NEGATIVE) 05/15/17 13:48 Urine Bilirubin Negative (NEGATIVE) 05/15/17 13:48 Urine Urobilinogen 0.2-1.0 mg/dL (0.2-1.0) 05/15/17 13:48 Ur Leukocyte Esterase Neg [place]/uL (Negative) 05/15/17 13:48 Urine RBC (Auto) 5 /hpf (0-3) H 05/15/17 13:48 Urine Microscopic WBC 9 /hpf (0-5) H 05/15/17 13:48 Ur Squamous Epith Cells 1 /hpf (0-5) 05/15/17 13:48 Attending/Attestation - Attestation I have personally seen and examined this patient.: Yes I have fully participated in the care of the patient.: Yes I have reviewed all pertinent clinical information, including history, physical exam and plan: Yes Notes (Text): 05/18/17 08:45 ATTENDING NOTE ATTESTATION PATIENT SEEN AND EXAMINED. CASE DISCUSSED WITH RESIDENT. RESIDENT NOTE SHOULD READ WAS NOT DEEMED TO NEED SURGICAL INTERVENTION BY CONSULTANTS. WHEN SEEN ON DAY OF DISCHARGE SHE WAS BEING WHEELED TO CAT SCAN. GI HAD ORDERED REPEAT CAT SCAN. THE PLAN WAS THAT SHE WOULD BE ABLE TO BE DISCHARGED IF CAT SCAN DID NOT SHOW ACUTE CHANGES.
--- NOTE | 2017-05-17 18:35 | CT ---
PROCEDURE: CT scan abdomen and pelvis dated 05/17/2017. HISTORY: Status post perforated diverticulum. COMPARISON: Comparison made with CT scan 05/15/2017. TECHNIQUE: Contiguous axial images of the abdomen and pelvis performed following oral and intravenous injection of approximately 95 cc Omnipaque 300 contrast material. . Coronal and Sagittal reformats generated. Radiation dose: Total exam DLP = This CT exam was performed using one or more of the following dose reduction techniques: Automated exposure control, adjustment of the mA and/or kV according to patient size, and/or use of iterative reconstruction technique. FINDINGS: LOWER THORAX: Minor atelectasis both posterior sulci. . Some minor linear scarring extending to the pleural surface seen in the right posterior sulcus as well as the lingular and middle lobe regions. Mild passive atelectasis both posterior lower lung zones LIVER: Liver is enlarged measuring nearly 20 cm in CC dimension. Mild diffuse fatty hepatic infiltration. GALLBLADDER AND BILE DUCTS: Gallbladder has been surgically resected with clips in gallbladder fossa again noted. PANCREAS: Unremarkable. No mass. No ductal dilatation. SPLEEN: Spleen is mildly enlarged measuring nearly 14 cm in. ADRENALS: Slightly nodular appearing left adrenal gland. KIDNEYS AND URETERS: Kidneys demonstrate symmetric nephrograms. . No evidence of nephrolithiasis or hydronephrosis. BLADDER: Grossly unremarkable. REPRODUCTIVE: Uterus is not seen consistent with hysterectomy. APPENDIX: Appendix is not seen with any certainty on this study BOWEL: Unremarkable. No obstruction. No gross mural thickening. PERITONEUM: There is an amorphous somewhat rounded area of soft tissue density in the right lower quadrant of the abdomen which abuts the superior margin of the radiopaque clip and extends somewhat superiorly partially surrounding the cecum and abutting an adjacent loop mobile all which exhibits slight wall thickening slight wall thickening. . Several bubbles of air are also the seen in about this area. Findings may represent early phlegmon formation. . Most of the remaining free intraperitoneal air that was seen on the prior exam has undergone some resorption though a few scattered bubbles are seen adjacent to the left upper quadrant of the abdomen anteriorly. Bubbles of air also seen in the right lower quadrant of the abdomen adjacent to the cecum and right inferolateral border of the liver. LYMPH NODES: Multiple small nonspecific retroperitoneal lymph nodes are present. There also appear to be small on nonspecific mesenteric lymph nodes. VASCULATURE: No evidence of abdominal aortic aneurysm. BONES: Multilevel degenerative spondylosis of the lower thoracic and lumbar spine. Changes most notably affect the L1-L2 level. OTHER FINDINGS: None. IMPRESSION: There is a somewhat amorphous rounded soft tissue density in the right aspect of the pelvis which abuts cecum and terminal ileum and is adjacent to -slightly above a presumed diverticular clip. Bubbles of air present within and about this area. . The cecum and adjacent loop of bowel exhibits slight of the thickened appearing moreira. Findings may represent a localized developing phlegmon. Clinical correlation recommended. Much of the previously noted free intraperitoneal air has undergone resorption. Note that these findings were discussed resident on-call Dr. Shannon at approximately 6:19 p.m. with written down and read back verification. See above discussion for additional details and findings.
--- NOTE | 2017-05-17 21:54 | CP.PCM.PCO ---
<Malika Shannon - Last Filed: 05/17/17 21:51> Progress Note - Review of Symptoms Events since last encounter: 71 YO F was seen and examined earlier today and appeared to be doing well. GI had ordered CT post op and were comfortable after reviewing findings to send patient home on PO antibiotics. Surgery was also consulted, which reviewed CT and agreed with the plan. Radiology contacted the instructional writer in the evening after the patient had been discharged with the official read and stated that he noted a amorphous rounded soft tissue density in right aspect of the pelvis which abuts cecum and terminal illium. Findings may represent an localized developing phlegmon. Bubbles of air were also noted above the diverticulitis clip. - Patient was contacted and made aware with the findings on the official report. Patient states she is comfortable and has minimal pain. Patient was strongly advised to come to the hospital, she was hesitant stating she is comfortable. She was made aware of the complications that could arise and again encouraged to come to the hospital for observation, and will be evaluated by surgery team and GI. <Nahed Haq - Last Filed: 05/18/17 08:58> Progress - Notes: Notes:: CASE DISCUSSED AT LENGTH WITH RESIDENT. PATIENT WAS LOCATED BY RESIDENT AT HER BROTHERS HOUSE. SITUATION EXPLAINED TO FAMILY MEMBER AND PATIENT BY RESIDENT. STRONGLY ADVISED TO RETURN TO HOSPITAL FOR REEVALUATION BY PRIMARY CARE TEAM WELL CONSULTANTS FROM GI AND GENERAL SURGERY WITH BENEFIT OF OFFICIAL REPORT FROM RADIOLOGIST WHICH THE ABOVE RESIDENT RECEIVED VIA TELEPHONE CALL AT APPROXIMATELY 8PM. WHEN PATIENT ARRIVES WILL RECHECK LABS, NPO, IV ANTIBIOTICS, AND RECONSULT GI AND GENERAL SURGERY SO THEY CAN EVALUATE AND ADVISE WITH THE BENEFIT OF THE OFFICIAL CAT SCAN REPORT BY THE RADIOLOGIST.
== END 2017-05-17 14:20 | disposition home or self-care (01) ==
LOC: H.ER 11:20 → INTOOBSV 15:11 → H.ERHOLD 15:11 → H.MEDSURG1 18:44
PROVIDERS: ADMIT Family Medicine Geriatric Medicine; ATTEND Family Medicine Geriatric Medicine
DX: R10.31 Right lower quadrant pain (principal); E11.9 Type 2 diabetes mellitus without complications; G44.209 Tension-type headache, unspecified, not intractable; I10 Essential (primary) hypertension; Z88.0 Allergy status to penicillin; J45.909 Unspecified asthma, uncomplicated; E78.00 Pure hypercholesterolemia, unspecified; M81.0 Age-related osteoporosis without current pathological fracture; E55.9 Vitamin D deficiency, unspecified; E78.5 Hyperlipidemia, unspecified; M17.0 Bilateral primary osteoarthritis of knee; M19.042 Primary osteoarthritis, left hand; M19.041 Primary osteoarthritis, right hand; Z85.41 Personal history of malignant neoplasm of cervix uteri; K29.70 Gastritis, unspecified, without bleeding; K59.00 Constipation, unspecified; R32 Unspecified urinary incontinence; K25.9 Gastric ulcer, unspecified as acute or chronic, without hemorrhage or perforation
CPT/HCPCS: 36415; 71045; 74177; 80053; 81003; 82150; 82948; 83690; 84484; 85025; 85027; 87086; 93005; 96365; 96366; 96367; 99282; C9113; G0378; J0744; J2270; J7120; Q9966; Q9967

== ENCOUNTER 2017-05-17 22:07 | Observation (INO) | payer MEDICARE, MEDICAID ==
[2017-05-17 22:08] VITALS: BMI 34.6
[2017-05-17] MEDS ORDERED: Sodium Chloride 0.9% 1,000 ML IV STA (22:41)
--- NOTE | 2017-05-17 22:41 | ED PDOC ---
HPI: Abdomen Time Seen by Provider: 05/17/17 22:26 Chief Complaint (Nursing): Abdominal Pain Chief Complaint (Provider): abd pain History Per: Patient Additional Complaint(s): 71-year-old female presents to emergency department for reevaluation of ongoing abdominal pain. Patient was told to return based on CT findings. Patient complains of lower abdominal pain that she rates as an 8 out of 10. She denies any nausea or vomiting, no diarrhea, no fever or chills. Patient was discharged earlier with Cipro and Flagyl. She took a dose of each of these meds about one hour prior to arrival this evening. PMD: [facility] Past Medical History Reviewed: Historical Data, Nursing Documentation, Vital Signs Vital Signs: Last Vital Signs Temp 99.2 F 05/17/17 22:31 Pulse 100 H 05/17/17 22:31 Resp 16 05/17/17 22:31 BP 128/76 05/17/17 22:31 Pulse Ox 98 05/17/17 23:03 - Medical History PMH: Arthritis, Asthma, Diabetes, Gastrointestinal Ulcer, HTN, Hypercholesterolemia, Malignancy (Cervical Cancer (20 years ago)), Osteoporosis - Surgical History Surgical History: Cholecystectomy, Endoscopy (5 years ago) Other surgeries: colonoscopy - Family History Family History: States: No Known Family Hx - Living Arrangements Living Arrangements: With Family - Social History Current smoker - smoking cessation education provided: No Alcohol: None Drugs: Denies - Home Medications Home Medications: Ambulatory Orders Medication Instructions Recorded MetFORMIN [glucoPHAGE] 1,000 mg PO BID 07/13/13 Atorvastatin [Lipitor] 40 mg PO HS 05/15/17 Cyanocobalamin [Vitamin B12 1000 1 tab PO DAILY 05/15/17 mcg Tab] Dulaglutide [Trulicity] 0.75 mg SC WE 05/15/17 Empagliflozin [Jardiance] 10 mg PO DAILY 05/15/17 Glimepiride [amaRYL] 4 mg PO DAILY 05/15/17 Insulin Glargine,Hum.rec.anlog 50 unit SC DAILY 05/15/17 [Tou[place]indao Solostar] Lactobacillus Combination No.8 1 cap PO DAILY 05/15/17 [Adult Probiotic] Magnesium Oxide [Magox 400] 1 tab PO DAILY 05/15/17 Oakman-3 Fatty Acids/Fish Oil [Fish 1 cap PO DAILY 05/15/17 Oil 1,000 mg Capsule] Omeprazole 40 mg PO DAILY 05/15/17 Tolterodine [Detrol] 2 mg PO BID 05/15/17 amLODIPine [Norvasc] 5 mg PO DAILY 05/15/17 Ciprofloxacin HCl [Cipro] 500 mg PO Q12 7 Days tablet 05/17/17 Metronidazole [Flagyl] 500 mg PO Q6 7 Days tablet 05/17/17 - Allergies Allergies/Adverse Reactions: Allergies Allergy/AdvReac Type Severity Reaction Status Date / Time Penicillins Allergy VOMITING Verified 05/17/17 23:02 sitagliptin [From Januvia] Allergy VOMITING Verified 05/17/17 23:02 Review of Systems ROS Statement: Except As Marked, All Systems Reviewed And Found Negative Constitutional: Negative for: Fever, Chills Gastrointestinal: Positive for: Abdominal Pain. Negative for: Nausea, Vomiting , Diarrhea Genitourinary Female: Negative for: Dysuria, Vaginal Discharge, Vaginal Bleeding Physical Exam - Reviewed Nursing Documentation Reviewed: Yes Vital Signs Reviewed: Yes - Physical Exam Appears: Positive for: Well, Non-toxic, No Acute Distress Skin: Negative for: Rash Eye Exam: Positive for: Normal appearance Cardiovascular/Chest: Positive for: Regular Rate, Rhythm Respiratory: Positive for: Normal Breath Sounds Gastrointestinal/Abdominal: Positive for: Other (Mild tenderness left lower quadrant and right lower quadrant, no rebound, no guarding, mild distention noted) Back: Negative for: L CVA Tenderness, R CVA Tenderness Extremity: Positive for: Normal ROM Neurologic/Psych: Positive for: Alert, Oriented - ECG O2 Sat by Pulse Oximetry: 98 Pulse Ox Interpretation: Normal Medical Decision Making Medical Decision Makin71 year old with abdominal pain Plan: CBC CMP IVF IV toradol NPO Admission CT: FINDINGS: LOWER THORAX: Minor atelectasis both posterior sulci. . Some minor linear scarring extending to the pleural surface seen in the right posterior sulcus as well as the lingular and middle lobe regions. Mild passive atelectasis both posterior lower lung zones LIVER: Liver is enlarged measuring nearly 20 cm in CC dimension. Mild diffuse fatty hepatic infiltration. GALLBLADDER AND BILE DUCTS: Gallbladder has been surgically resected with clips in gallbladder fossa again noted. PANCREAS: Unremarkable. No mass. No ductal dilatation. SPLEEN: Spleen is mildly enlarged measuring nearly 14 cm in. ADRENALS: Slightly nodular appearing left adrenal gland. KIDNEYS AND URETERS: Kidneys demonstrate symmetric nephrograms. . No evidence of nephrolithiasis or hydronephrosis. BLADDER: Grossly unremarkable. REPRODUCTIVE: Uterus is not seen consistent with hysterectomy. APPENDIX: Appendix is not seen with any certainty on this study BOWEL: Unremarkable. No obstruction. No gross mural thickening. PERITONEUM: There is an amorphous somewhat rounded area of soft tissue density in the right lower quadrant of the abdomen which abuts the superior margin of the radiopaque clip and extends somewhat superiorly partially surrounding the cecum and abutting an adjacent loop mobile all which exhibits slight wall thickening slight wall thickening. . Several bubbles of air are also the seen in about this area. Findings may represent early phlegmon formation. Most of the remaining free intraperitoneal air that was seen on the prior exam has undergone some resorption though a few scattered bubbles are seen adjacent to the left upper quadrant of the abdomen anteriorly. Bubbles of air also seen in the right lower quadrant of the abdomen adjacent to the cecum and right inferolateral border of the liver. LYMPH NODES: Multiple small nonspecific retroperitoneal lymph nodes are present. There also appear to be small on nonspecific mesenteric lymph nodes. VASCULATURE: No evidence of abdominal aortic aneurysm. BONES: Multilevel degenerative spondylosis of the lower thoracic and lumbar spine. Changes most notably affect the L1-L2 level. OTHER FINDINGS: None. IMPRESSION: There is a somewhat amorphous rounded soft tissue density in the right aspect of the pelvis which abuts cecum and terminal ileum and is adjacent to -slightly above a presumed diverticular clip. Bubbles of air present within and about this area. . The cecum and adjacent loop of bowel exhibits slight of the thickened appearing moreira. Findings may represent a localized developing phlegmon. Clinical correlation recommended. Much of the previously noted free intraperitoneal air has undergone resorption. Note that these findings were discussed resident on-call Dr. Shannon at approximately 6:19 p.m. with written down and read back verification. Family Practice resident, Dr. Ricks at bedside for admission. Patient is aware of and agrees with admission. Disposition - Clinical Impression Clinical Impression: Bowel perforation - Patient ED Disposition Is Patient to be Admitted: Yes - Disposition Disposition Time: 22:43 Condition: FAIR - Pt Status Changed To: Hospital Disposition Of: Inpatient - Admit Certification Admit to Inpatient:: After my assessment, the patient will require hospitalization for at least two midnights. This is because of the severity of symptoms shown, intensity of services needed, and/or the medical risk in this patient being treated as an outpatient. - POA Present On Arrival: None
[2017-05-17 23:52] LABS: BASO % 0.2 % (0.0-2.0); EOS # 0.1 K/uL (0.0-0.7); EOS % 1.6 % (0.0-4.0); HEMOGLOBIN 12.1 g/dL (12.0-16.0); LYMPH # 1.1 K/uL (1.0-4.3); LYMPH % 16.3 % (20.0-40.0); MEAN CELL VOLUME 84.5 fl (81.0-99.0); MONO # 0.5 K/uL (0.0-0.8); NEUT # 5.1 K/uL (1.8-7.0); NEUT % 74.9 % (50.0-75.0); RBC 4.47 Mil/uL (3.80-5.20); RED CELL DISTRIBUTION WIDTH 16.2 % (11.5-14.5); WHITE BLOOD COUNT 6.8 K/uL (4.8-10.8)
[2017-05-17] MEDS ORDERED: Glucagon Recombinant 1 mg Inj IM PRN (23:52)
[2017-05-17] MEDS ORDERED: Dextrose 50% SYRINGE Inj (50 ml) IV PRN (23:52)
[2017-05-18 00:16] LABS: ALB/GLOB RATIO 1.1 (1.0-2.1); ALBUMIN 3.7 g/dL (3.5-5.0); ALT/SGPT 45 U/L (9-52); AST/SGOT 23 U/L (14-36); BLOOD UREA NITROGEN 10 mg/dl (7-17); CALCIUM 9.3 mg/dL (8.4-10.2); GFR AFRICAN-AMERICAN > 60; GFR NON-AFRICAN AMERICAN > 60
--- NOTE | 2017-05-18 01:37 | CP.PCM.HP ---
<Malika Shannon - Last Filed: 05/18/17 01:52> History of Present Illness - History of Present Illness History of Present Illness: 71 YO F w/ PMH of DM, gastrointestinal ulcer, cervical CA and hypertension who was found to have a perforated diverticulum on colonoscopy on 05/15/17 and was clipped, had been discharged earlier today. Primary team had seen and examined patient, and found her to be doing well. Ct results were discussed with GI and surgery, joint decision was made to discharge patient on PO antibiotics and follow up outpatient. Radiology contacted the ad writer in the evening after the patient had been discharged with the official read and stated that he noted a amorphous rounded soft tissue density in right aspect of the pelvis which abuts cecum and terminal illium. Findings may represent an localized developing phlegmon. Bubbles of air were also noted above the diverticulitis clip. Patient was called back in by the ad writer and advised to return for reassessment. She had ate dinner tonight and did not have any nausea, vomiting or diarrhea. However she does complain of pain when moving around at a 8/10, denies any pain while sitting still. Patient took her Cipro and Flagyl one hour prior to coming to the ER. PMD: Dr. [place] PMH: diabetes, gastrointestinal ulcer, cervical CA and hypertension allergies: NKDA meds: see med list PSH: total hysterectomy >20 years ago, cholecystectomy >10 years ago, Bowl perforation clipping 05/2017 Fam: non-contributory SOC: denies smoking, alcohol, and drugs; patient reports she is a [employer] ROS: 12 points assessed and negative unless otherwise reported in HPI Present on Admission - Present on Admission Any Indicators Present on Admission: No Past Patient History - Infectious Disease Hx of Infectious Diseases: None - Past Medical History & Family History Past Medical History?: Yes - Past Social History Alcohol: None Drugs: Denies - CARDIAC Hx Hypercholesterolemia: Yes Hx Hypertension: Yes - PULMONARY Hx Asthma: Yes - NEUROLOGICAL Hx Neurological Disorder: No - HEENT Hx HEENT Problems: No Hx Cataracts: Yes (rt eye) - RENAL Hx Chronic Kidney Disease: No - ENDOCRINE/METABOLIC Hx Endocrine Disorders: Yes Hx Diabetes Mellitus Type 2: Yes - HEMATOLOGICAL/ONCOLOGICAL Hx Human Immunodeficiency Virus (HIV): No - INTEGUMENTARY Hx Dermatological Problems: No - MUSCULOSKELETAL/RHEUMATOLOGICAL Hx Arthritis: Yes Hx Osteoporosis: Yes - GASTROINTESTINAL Hx Gastrointestinal Disorders: Yes Hx Hemorrhoids: Yes HX Swallowing Problems: Yes Hx Ulcer: Yes - GENITOURINARY/GYNECOLOGICAL Hx Genitourinary Disorders: Yes Hx Cervical Cancer: Yes Hx Incontinence: Yes (FREQUENCY) - PSYCHIATRIC Hx Psychophysiologic Disorder: No Hx Substance Use: No - SURGICAL HISTORY Hx Cholecystectomy: Yes - ANESTHESIA Hx Anesthesia: Yes Hx Anesthesia Reactions: No Hx Malignant Hyperthermia: No Meds Allergies/Adverse Reactions: Allergies Allergy/AdvReac Type Severity Reaction Status Date / Time Penicillins Allergy VOMITING Verified 05/17/17 23:02 sitagliptin [From Apruvia] Allergy VOMITING Verified 05/17/17 23:02 Physical Exam - Constitutional Appears: No Acute Distress - Head Exam Head Exam: NORMAL INSPECTION - Eye Exam Eye Exam: Normal appearance - Respiratory Exam Respiratory Exam: Clear to Auscultation Bilateral, NORMAL BREATHING PATTERN - Cardiovascular Exam Cardiovascular Exam: REGULAR RHYTHM, +S1, +S2 - GI/Abdominal Exam GI & Abdominal Exam: Normal Bowel Sounds, Soft, Tenderness (left lower quadrant tenderness on palpation). absent: Guarding, Rebound, Rigid - Neurological Exam Neurological exam: Alert, CN II-XII Intact, Oriented x3 - Psychiatric Exam Psychiatric exam: Normal Affect, Normal Mood - Skin Skin Exam: Normal Color, Warm Results - Vital Signs Recent Vital Signs: Last Vital Signs Temp 99.2 F 05/17/17 22:31 Pulse 100 H 05/17/17 22:31 Resp 16 05/17/17 22:31 BP 128/76 05/17/17 22:31 Pulse Ox 98 05/17/17 23:50 - Labs Result Diagrams: 05/17/17 22:05 05/17/17 22:05 Labs: Laboratory Results - last 24 hr 05/17/17 05/17/17 22:05 22:05 WBC 6.8 RBC 4.47 Hgb 12.1 Hct 37.8 MCV 84.5 MCH 27.0 MCHC 32.0 L RDW 16.2 H Plt Count 174 MPV 9.0 Neut % (Auto) 74.9 Lymph % (Auto) 16.3 L [place] % (Auto) 7.0 Eos % (Auto) 1.6 Baso % (Auto) 0.2 Neut # (Auto) 5.1 Lymph # (Auto) 1.1 [place] # (Auto) 0.5 Eos # (Auto) 0.1 Baso # (Auto) 0.0 Sodium 141 Potassium 4.0 Chloride 103 Carbon Dioxide 26 Anion Gap 16 BUN 10 Creatinine 0.8 Est GFR ( Amer) > 60 Est GFR (Non-Af Amer) > 60 Random Glucose 281 H Calcium 9.3 Total Bilirubin 0.4 AST 23 ALT 45 Alkaline Phosphatase 62 Total Protein 7.0 Albumin 3.7 Globulin 3.3 Albumin/Globulin Ratio 1.1 Assessment & Plan - Assessment and Plan (Free Text) Assessment: The patient is a 71 y/o woman w/ pmh of diabetes, gastrointestinal ulcer, cervical CA and hypertension presents to the ER for reevaluation with new CT findings. Abdominal Pain 2/ clipped perforated diverticulum - NPO - s/p colonoscopy this 05/15/2017, had perforated diverticulum clipped - CT Abdomen & Pelvis IV contrast only:(05/17/17) amorphous rounded soft tissue density in right aspect of the pelvis which abuts cecum and terminal illium. Findings may represent an localized developing phlegmon. Bubbles of air were also noted above the diverticulitis clip. - Ciprofloxacin 400 mg IV Q12h - Metronidazole 500 mg IV Q8h - GI consulted, Dr. Barker - Surgery consulted, Dr. Millan DM2 - HbA1c 8.5% (12/12/2016) - Hold Home meds. NPO currently. On sliding scale HTN - controlled w/ medication - home med: amlodipine 5 mg PO daily - c/w home med HLD - (hold) atorvastatin cervical cancer - s/p total hysterectomy >20 years ago Prophylactic measures - DVT: SCDs <Nahed Haq - Last Filed: 05/18/17 09:00> History of Present Illness - History of Present Illness History of Present Illness: ATTENDING NOTE. CASE DISCUSSED AT LENGTH WITH RESIDENT. WILL ADMIT TO OBS, NPO, IV ANTIBIOTICS, REPEAT CBC/CHEM-7, RECONSULT GI AND GENERAL SURGERY. Results - Vital Signs Recent Vital Signs: Last Vital Signs Temp 98.2 F 05/18/17 08:08 Pulse 87 05/18/17 08:08 Resp 20 05/18/17 08:08 BP 146/95 H 05/18/17 08:08 Pulse Ox 98 05/18/17 08:08 - Labs Result Diagrams: 05/17/17 22:05 05/17/17 22:05 Labs: Laboratory Results - last 24 hr 05/17/17 05/17/17 05/18/17 22:05 22:05 05:36 WBC 6.8 RBC 4.47 Hgb 12.1 Hct 37.8 MCV 84.5 MCH 27.0 MCHC 32.0 L RDW 16.2 H Plt Count 174 MPV 9.0 Neut % (Auto) 74.9 Lymph % (Auto) 16.3 L [place] % (Auto) 7.0 Eos % (Auto) 1.6 Baso % (Auto) 0.2 Neut # (Auto) 5.1 Lymph # (Auto) 1.1 [place] # (Auto) 0.5 Eos # (Auto) 0.1 Baso # (Auto) 0.0 Sodium 141 Potassium 4.0 Chloride 103 Carbon Dioxide 26 Anion Gap 16 BUN 10 Creatinine 0.8 Est GFR ( Amer) > 60 Est GFR (Non-Af Amer) > 60 POC Glucose (mg/dL) 268 H Random Glucose 281 H Calcium 9.3 Total Bilirubin 0.4 AST 23 ALT 45 Alkaline Phosphatase 62 Total Protein 7.0 Albumin 3.7 Globulin 3.3 Albumin/Globulin Ratio 1.1
[2017-05-18] MEDS ORDERED: metroNIDAZOLE 500mg/100ml NS 100 ML IVPB SCH ×2 (04:00→09:00)
--- NOTE | 2017-05-18 05:04 | CP.PCM.CON ---
History of Present Illness - History of Present Illness History of Present Illness: General Surgery Consult Note for Dr. iMllan Reason for Consult: Bowel perforation 71F with PMH that includes DM, gastrointestinal ulcer, cervical CA and hypertension who was found to have a perforated diverticulum on colonoscopy on , which was clipped. Patient was cleared for discharged yesterday. Patient was clinically stable. She was sent home with oral antibiotics and instructed to follow up as outpatient. CT scan was done before patient left but resulted after she was discahrged. Radiology contacted primary team and stated that there was air present near clip and localized phlegmon changes. Patient was called and instructed to return for reassessment. Patient currently denying pain , although states that she experiences pain when walking. Denies nausea/ vomiting. Patient had one loose BM. Denies fever/chills, cp, sob, palpitations, abdominal distention. PMD: Dr. [place] PMH: GM, Peptic ulcers, cervical CA and hypertension Meds: as per EMR Allergy: NKDA PSH: MARK ANTHONY, cholecystectomy, Bowl perforation clipping 05/15 FH: non-contributory SOC: denies tobacco/EtOH/illicit drug use; [employer] Review of Systems - Review of Systems All systems: reviewed and no additional remarkable complaints except (as per HPI ) Past Patient History - Infectious Disease Hx of Infectious Diseases: None - Past Medical History & Family History Past Medical History?: Yes - Past Social History Smoking Status: Never Smoked - CARDIAC Hx Cardiac Disorders: Yes Hx Hypercholesterolemia: Yes Hx Hypertension: Yes - PULMONARY Hx Respiratory Disorders: Yes Hx Asthma: Yes - NEUROLOGICAL Hx Neurological Disorder: No - HEENT Hx HEENT Problems: Yes Hx Cataracts: Yes (rt eye) - RENAL Hx Chronic Kidney Disease: No - ENDOCRINE/METABOLIC Hx Endocrine Disorders: Yes Hx Diabetes Mellitus Type 2: Yes - HEMATOLOGICAL/ONCOLOGICAL Hx Blood Disorders: No Hx Human Immunodeficiency Virus (HIV): No - INTEGUMENTARY Hx Dermatological Problems: No - MUSCULOSKELETAL/RHEUMATOLOGICAL Hx Musculoskeletal Disorders: Yes Hx Falls: Yes - GASTROINTESTINAL Hx Gastrointestinal Disorders: Yes Hx Hemorrhoids: Yes HX Swallowing Problems: Yes Hx Ulcer: Yes - GENITOURINARY/GYNECOLOGICAL Hx Genitourinary Disorders: Yes Hx Cervical Cancer: Yes Hx Incontinence: Yes (FREQUENCY) - PSYCHIATRIC Hx Psychophysiologic Disorder: No Hx Substance Use: No - SURGICAL HISTORY Hx Surgeries: Yes Hx Cholecystectomy: Yes - ANESTHESIA Hx Anesthesia: Yes Hx Anesthesia Reactions: No Hx Malignant Hyperthermia: No Meds Allergies/Adverse Reactions: Allergies Allergy/AdvReac Type Severity Reaction Status Date / Time Penicillins Allergy VOMITING Verified 05/17/17 23:02 sitagliptin [From Apruv] Allergy VOMITING Verified 05/17/17 23:02 - Medications Medications: Current Medications Amlodipine Besylate (Norvasc) 5 mg PO DAILY [facility] Dextrose (Dextrose 50% Inj) 0 ml IV STAT PRN; Protocol PRN Reason: Hypoglycemia Protocol Dextrose (Glutose 15) 0 gm PO ONCE PRN; Protocol PRN Reason: Hypoglycemia Protocol Glucagon (Glucagen Diagnostic Kit) 0 mg IM STAT PRN; Protocol PRN Reason: Hypoglycemia Protocol Sodium Chloride (Sodium Chloride 0.9%) 1,000 mls @ 125 mls/hr IV .Q8H STA Stop: 05/18/17 06:40 Last Admin: 05/17/17 23:11 Dose: 125 mls/hr Ciprofloxacin (Cipro 400mg/200ml Dsw) 400 mg in 200 mls @ 200 mls/hr IVPB Q12 ROX Metronidazole (Flagyl 500mg/100ml Ns) 100 mls @ 100 mls/hr IVPB Q6 ROX PRN Reason: Protocol Last Admin: 05/18/17 04:13 Dose: 100 mls/hr Insulin Human Regular (Humulin R) 0 units SC ACHS ROX PRN Reason: Protocol Physical Exam - Constitutional Appears: No Acute Distress - Head Exam Head Exam: ATRAUMATIC, NORMOCEPHALIC - Eye Exam Eye Exam: EOMI, Normal appearance Pupil Exam: PERRL - ENT Exam ENT Exam: Mucous Membranes Moist - Respiratory Exam Respiratory Exam: NORMAL BREATHING PATTERN - Cardiovascular Exam Cardiovascular Exam: REGULAR RHYTHM - GI/Abdominal Exam GI & Abdominal Exam: Normal Bowel Sounds, Soft, Tenderness (suprapubic ). absent: Distended, Firm, Guarding, Rebound, Rigid Additional comments: no peritoneal signs - Extremities Exam Extremities exam: Positive for: normal capillary refill, pedal pulses present. Negative for: calf tenderness - Back Exam Back exam: absent: CVA tenderness (L), CVA tenderness (R) - Neurological Exam Neurological exam: Alert, CN II-XII Intact, Oriented x3 - Psychiatric Exam Psychiatric exam: Normal Affect, Normal Mood - Skin Skin Exam: Dry, Intact, Normal Color, Warm Results - Vital Signs Recent Vital Signs: Last Vital Signs Temp 97.8 F 05/18/17 01:50 Pulse 91 H 05/18/17 02:53 Resp 18 05/18/17 02:53 BP 121/72 05/18/17 01:50 Pulse Ox 96 05/18/17 02:53 - Labs Result Diagrams: 05/17/17 22:05 05/17/17 22:05 Labs: Laboratory Results - last 24 hr 05/17/17 05/17/17 22:05 22:05 WBC 6.8 RBC 4.47 Hgb 12.1 Hct 37.8 MCV 84.5 MCH 27.0 MCHC 32.0 L RDW 16.2 H Plt Count 174 MPV 9.0 Neut % (Auto) 74.9 Lymph % (Auto) 16.3 L [place] % (Auto) 7.0 Eos % (Auto) 1.6 Baso % (Auto) 0.2 Neut # (Auto) 5.1 Lymph # (Auto) 1.1 [place] # (Auto) 0.5 Eos # (Auto) 0.1 Baso # (Auto) 0.0 Sodium 141 Potassium 4.0 Chloride 103 Carbon Dioxide 26 Anion Gap 16 BUN 10 Creatinine 0.8 Est GFR ( Amer) > 60 Est GFR (Non-Af Amer) > 60 Random Glucose 281 H Calcium 9.3 Total Bilirubin 0.4 AST 23 ALT 45 Alkaline Phosphatase 62 Total Protein 7.0 Albumin 3.7 Globulin 3.3 Albumin/Globulin Ratio 1.1 Assessment & Plan - Assessment and Plan (Free Text) Plan: 71 F with bowel perforation -Continue IV antibiotics -Theres is no extravasation of contrast on CT -No clinical signs of peritonitis -Management as per primary -Will continue to follow -Further recommendations as per Dr. Monty Falcon PGY1
--- NOTE | 2017-05-18 06:51 | CP.PCM.CON ---
<Sofiya Lang - Last Filed: 05/18/17 12:44> History of Present Illness - History of Present Illness History of Present Illness: GI Fellow PGY4 Consult Note This is a 71yF with pmhx of HTN, HL, DM who initially presented to the GI office for change in bowel habits and dysphagia. Pt underwent a EGD/Colonoscopy 05/15/17, EGD with gastritis, in the colon there was a narrowing of the colon in association with the diverticular opening. A diverticulum with fat and muscle was seen. Three resolution clips were placed to close the opening. Procedure was aborted and pt was transferred to the ER after waking up from Anesthesia in post-op area. Pt was hemodynamically stable with no complaints of abdominal or back pain. Discussed results with patient and need for further workup and inpatient care. Pt was treated with IV abx Cipro/Flagyl for three days with no abdominal pain, no fevers, chills and no WBC and tolerating regular diet. Pt had two CT scans showing improved air prior to discharge home on 05/17 on po abx for 7 more days and was scheduled to follow up with GI and surgery in two weeks. CT scan on 05/17 was reported by Radiologist to show a phelgmon formation above site of clisp and Primary team requested the patient return back to the hospital for further management and follow up. Pt is reporting some abdominal pain on LLQ after having dinner last night but no nausea or vomiting. ROS: A 12pt ROS was negative except as above. PmHx: As stated in HPI PsHx: None SHx: Denies tobacco, alcohol, or drugs FHx: Denies colon cancer Past Patient History - Infectious Disease Hx of Infectious Diseases: None - Past Medical History & Family History Past Medical History?: Yes - Past Social History Smoking Status: Never Smoked - CARDIAC Hx Cardiac Disorders: Yes Hx Hypercholesterolemia: Yes Hx Hypertension: Yes - PULMONARY Hx Respiratory Disorders: Yes Hx Asthma: Yes - NEUROLOGICAL Hx Neurological Disorder: No - HEENT Hx HEENT Problems: Yes Hx Cataracts: Yes (rt eye) - RENAL Hx Chronic Kidney Disease: No - ENDOCRINE/METABOLIC Hx Endocrine Disorders: Yes Hx Diabetes Mellitus Type 2: Yes - HEMATOLOGICAL/ONCOLOGICAL Hx Blood Disorders: No Hx Human Immunodeficiency Virus (HIV): No - INTEGUMENTARY Hx Dermatological Problems: No - MUSCULOSKELETAL/RHEUMATOLOGICAL Hx Musculoskeletal Disorders: Yes Hx Falls: Yes - GASTROINTESTINAL Hx Gastrointestinal Disorders: Yes Hx Hemorrhoids: Yes HX Swallowing Problems: Yes Hx Ulcer: Yes - GENITOURINARY/GYNECOLOGICAL Hx Genitourinary Disorders: Yes Hx Cervical Cancer: Yes Hx Incontinence: Yes (FREQUENCY) - PSYCHIATRIC Hx Psychophysiologic Disorder: No Hx Substance Use: No - SURGICAL HISTORY Hx Surgeries: Yes Hx Cholecystectomy: Yes - ANESTHESIA Hx Anesthesia: Yes Hx Anesthesia Reactions: No Hx Malignant Hyperthermia: No Meds Allergies/Adverse Reactions: Allergies Allergy/AdvReac Type Severity Reaction Status Date / Time Penicillins Allergy VOMITING Verified 05/17/17 23:02 sitagliptin [From Apruvia] Allergy VOMITING Verified 05/17/17 23:02 - Medications Medications: Current Medications Amlodipine Besylate (Norvasc) 5 mg PO DAILY ROX Dextrose (Dextrose 50% Inj) 0 ml IV STAT PRN; Protocol PRN Reason: Hypoglycemia Protocol Dextrose (Glutose 15) 0 gm PO ONCE PRN; Protocol PRN Reason: Hypoglycemia Protocol Glucagon (Glucagen Diagnostic Kit) 0 mg IM STAT PRN; Protocol PRN Reason: Hypoglycemia Protocol Ciprofloxacin (Cipro 400mg/200ml Dsw) 400 mg in 200 mls @ 200 mls/hr IVPB Q12 ROX Metronidazole (Flagyl 500mg/100ml Ns) 100 mls @ 100 mls/hr IVPB Q6 ROX PRN Reason: Protocol Last Admin: 05/18/17 04:13 Dose: 100 mls/hr Insulin Human Regular (Humulin R) 0 units SC ACHS ROX PRN Reason: Protocol Physical Exam - Constitutional Appears: Non-toxic, No Acute Distress - Head Exam Head Exam: ATRAUMATIC, NORMAL INSPECTION, NORMOCEPHALIC - Eye Exam Eye Exam: EOMI, Normal appearance, PERRL Pupil Exam: PERRL - ENT Exam ENT Exam: Mucous Membranes Moist - Respiratory Exam Respiratory Exam: Clear to Auscultation Bilateral, NORMAL BREATHING PATTERN - Cardiovascular Exam Cardiovascular Exam: RRR - GI/Abdominal Exam GI & Abdominal Exam: Normal Bowel Sounds, Organomegaly, Soft, Tenderness. absent: Distended, Guarding - Extremities Exam Extremities exam: Positive for: normal inspection - Neurological Exam Neurological exam: Alert, Oriented x3 - Psychiatric Exam Psychiatric exam: Normal Affect, Normal Mood - Skin Skin Exam: Intact, Normal Color, Warm Results - Vital Signs Recent Vital Signs: Last Vital Signs Temp 97.8 F 05/18/17 01:50 Pulse 91 H 05/18/17 02:53 Resp 18 05/18/17 02:53 BP 121/72 05/18/17 01:50 Pulse Ox 96 05/18/17 02:53 - Labs Result Diagrams: 05/17/17 22:05 05/17/17 22:05 Labs: Laboratory Results - last 24 hr 05/17/17 05/17/17 05/18/17 22:05 22:05 05:36 WBC 6.8 RBC 4.47 Hgb 12.1 Hct 37.8 MCV 84.5 MCH 27.0 MCHC 32.0 L RDW 16.2 H Plt Count 174 MPV 9.0 Neut % (Auto) 74.9 Lymph % (Auto) 16.3 L Ashley % (Auto) 7.0 Eos % (Auto) 1.6 Baso % (Auto) 0.2 Neut # (Auto) 5.1 Lymph # (Auto) 1.1 Ashley # (Auto) 0.5 Eos # (Auto) 0.1 Baso # (Auto) 0.0 Sodium 141 Potassium 4.0 Chloride 103 Carbon Dioxide 26 Anion Gap 16 BUN 10 Creatinine 0.8 Est GFR ( Amer) > 60 Est GFR (Non-Af Amer) > 60 POC Glucose (mg/dL) 268 H Random Glucose 281 H Calcium 9.3 Total Bilirubin 0.4 AST 23 ALT 45 Alkaline Phosphatase 62 Total Protein 7.0 Albumin 3.7 Globulin 3.3 Albumin/Globulin Ratio 1.1 Assessment & Plan - Assessment and Plan (Free Text) Assessment: This is a 71yF who presented for EGD/Colonoscopy as an outpatient found to have perforated diverticulum s/p 3 clips 05/15/17. 1. Perforated diverticulum s/p 3 clips 2. s/p EGD with gastritis 3. Possible Phelgmon formation above site of clips Plan: -Continue supportive care with pain control and anti-emetics -Pt clinically stable with no abdominal pain, fevers, chills, no leukocytosis -Recommend IV abx -Regular diet -Surgical consult for further evaluation and recommendations -Monitor labs and if any change in clinical status may need to be evaluated for surgical intervention -Will continue to follow closely <Della Barker MD - Last Filed: 05/18/17 17:15> Meds - Medications Medications: Current Medications Amlodipine Besylate (Norvasc) 5 mg PO DAILY [facility] Last Admin: 05/18/17 11:32 Dose: 5 mg Atorvastatin Calcium (Lipitor) 40 mg PO HS [facility] Dextrose (Dextrose 50% Inj) 0 ml IV STAT PRN; Protocol PRN Reason: Hypoglycemia Protocol Dextrose (Glutose 15) 0 gm PO ONCE PRN; Protocol PRN Reason: Hypoglycemia Protocol Glipizide (Glucotrol Xl) 10 mg PO DAILY [facility] Last Admin: 05/18/17 09:00 Dose: Not Given Glucagon (Glucagen Diagnostic Kit) 0 mg IM STAT PRN; Protocol PRN Reason: Hypoglycemia Protocol Home Med (Dulaglutide [Trulicity]) 0.75 mg SC WE [facility] Home Med (Insulin Glargine,Hum.Rec.Anlog [Toucriss Solostar]) 50 unit SC DAILY [facility] Home Med (Empagliflozin [Jardiance]) 10 mg PO DAILY [facility] Ciprofloxacin (Cipro 400mg/200ml Dsw) 400 mg in 200 mls @ 200 mls/hr IVPB Q12 [facility] Last Admin: 05/18/17 08:58 Dose: 200 mls/hr Metronidazole (Flagyl 500mg/100ml Ns) 100 mls @ 100 mls/hr IVPB Q8 ROX PRN Reason: Protocol Last Admin: 05/18/17 16:38 Dose: 100 mls/hr Insulin Human Regular (Humulin R) 0 units SC ACHS ROX PRN Reason: Protocol Last Admin: 05/18/17 11:30 Dose: 3 u Metformin HCl (Glucophage) 1,000 mg PO BID [facility] Last Admin: 05/18/17 15:30 Dose: Not Given Results - Vital Signs Recent Vital Signs: Last Vital Signs Temp 98.3 F 05/18/17 16:49 Pulse 86 05/18/17 16:49 Resp 20 05/18/17 16:49 BP 130/76 05/18/17 16:49 Pulse Ox 94 L 05/18/17 16:49 - Labs Result Diagrams: 05/17/17 22:05 05/17/17 22:05 Labs: Laboratory Results - last 24 hr 05/17/17 05/17/17 05/18/17 22:05 22:05 05:36 WBC 6.8 RBC 4.47 Hgb 12.1 Hct 37.8 MCV 84.5 MCH 27.0 MCHC 32.0 L RDW 16.2 H Plt Count 174 MPV 9.0 Neut % (Auto) 74.9 Lymph % (Auto) 16.3 L [place] % (Auto) 7.0 Eos % (Auto) 1.6 Baso % (Auto) 0.2 Neut # (Auto) 5.1 Lymph # (Auto) 1.1 Ashley # (Auto) 0.5 Eos # (Auto) 0.1 Baso # (Auto) 0.0 Sodium 141 Potassium 4.0 Chloride 103 Carbon Dioxide 26 Anion Gap 16 BUN 10 Creatinine 0.8 Est GFR ( Amer) > 60 Est GFR (Non-Af Amer) > 60 POC Glucose (mg/dL) 268 H Random Glucose 281 H Calcium 9.3 Total Bilirubin 0.4 AST 23 ALT 45 Alkaline Phosphatase 62 Total Protein 7.0 Albumin 3.7 Globulin 3.3 Albumin/Globulin Ratio 1.1 05/18/17 05/18/17 10:51 16:44 WBC RBC Hgb Hct MCV MCH MCHC RDW Plt Count MPV Neut % (Auto) Lymph % (Auto) Ashley % (Auto) Eos % (Auto) Baso % (Auto) Neut # (Auto) Lymph # (Auto) Ashley # (Auto) Eos # (Auto) Baso # (Auto) Sodium Potassium Chloride Carbon Dioxide Anion Gap BUN Creatinine Est GFR ( Amer) Est GFR (Non-Af Amer) POC Glucose (mg/dL) 229 H 233 H Random Glucose Calcium Total Bilirubin AST ALT Alkaline Phosphatase Total Protein Albumin Globulin Albumin/Globulin Ratio Attending/Attestation - Attestation I have personally seen and examined this patient.: Yes I have fully participated in the care of the patient.: Yes I have reviewed all pertinent clinical information: Yes Notes (Text): 05/18/17 17:12 Patient seen in the room this am. In a nutshell this is a 71 year old female, with a past medical history of diabetes, gastrointestinal ulcer, cervical CA and hypertension, who presented as outpatient for polyp surveillance and chronic abdominal pain. Colonoscopy was technically difficult with redundant colon. A colonoscopy in 2014 had similar findings. Multiple maneuvers with extrinsic pressure, and position change did not help to pass recto sigmoid area. A mucosal defect was seen during traversing the scope in recto sigmoid which was closed with [address] abdomen showed intra peritoneal air. Patient was stable and started on IV antibiotics for 48 hours with no sign of peritonitis. She was discharged yesterday after repeat CTAP showed resolution of intraperitoneal air. Radiologist on final read was concerned for phlegmon and she was readmitted. Patient denies any fever, chills, chest pain, shortness of breath or urinary symptoms. No fever and hemodynamically stable. Denies abdominal pain or tenderness. Tolerating regular diet. Complete 10 day course of cipro and flagyl and follow in my office next week. Discussed with Dr Millan- no indication for surgery. Will follow
[2017-05-18] MEDS ORDERED: Insulin Regular 100 units/ml SC SCH (07:30)
[2017-05-18] MEDS: Ciprofloxacin 400mg/200ml D5W 400 MG/200 ML BAG IVPB SCH ×2 (08:58→21:55)
[2017-05-18] MEDS: Insulin Regular 100 units/ml SC SCH ×4 (08:59→22:00)
[2017-05-18] MEDS: GlipiZIDE 10 mg SR Tab PO SCH (09:00)
[2017-05-18] MEDS ORDERED: INSULIN GLARGINE HUM REC ANLOG 50 UNIT SC SCH (09:00)
--- NOTE | 2017-05-18 12:40 | CP.PCM.PN ---
<Jacob Brooks - Last Filed: 05/18/17 13:06> Subjective - Date & Time of Evaluation Date of Evaluation: 05/18/17 Time of Evaluation: 07:10 - Subjective Subjective: Pt seen and examined at beside on med/surg. No acute distress. States voiding without issue and having two normal BMs overnight without any pain, abdifatah blood , dark tarry stools, or diarrhea. Denies fevers/chills, nausea, vomiting, chest pain, SOB, or dyspnea. She denies any significant abdominal pain, stating it improved following administration of pain medication upon return. Patient was started on diet by consulting specialists. NAD PERRL, No scleral icterus RRR, S1 S2 CTA b/l Soft, nondistended, +tenderness LLQ, -guarding, -rigidity No pedal edema, no calf tenderness Abdominal Pain 2/2 clipped perforated diverticulum -Ciprofloxacin 400 mg IV Q12h -Metronidazole 500 mg IV Q8h -Will follow up vitals and complaints of pain -Monitor bowel movements -Serial exams overnight <Nahed Haq - Last Filed: 05/19/17 10:34> Objective - Vital Signs/Intake and Output Vital Signs (last 24 hours): Temp Pulse Resp BP Pulse Ox 98.1 F 78 20 125/71 94 L 05/19/17 08:37 05/19/17 08:37 05/19/17 08:37 05/19/17 08:37 05/19/17 08:37 - Medications Medications: Current Medications Amlodipine Besylate (Norvasc) 5 mg PO DAILY [facility] Last Admin: 05/18/17 11:32 Dose: 5 mg Atorvastatin Calcium (Lipitor) 40 mg PO HS [facility] Last Admin: 05/18/17 22:30 Dose: 40 mg Dextrose (Dextrose 50% Inj) 0 ml IV STAT PRN; Protocol PRN Reason: Hypoglycemia Protocol Dextrose (Glutose 15) 0 gm PO ONCE PRN; Protocol PRN Reason: Hypoglycemia Protocol Glipizide (Glucotrol Xl) 10 mg PO DAILY [facility] Last Admin: 05/19/17 09:03 Dose: 10 mg Glucagon (Glucagen Diagnostic Kit) 0 mg IM STAT PRN; Protocol PRN Reason: Hypoglycemia Protocol Home Med (Dulaglutide [Trulicity]) 0.75 mg SC [facility] Home Med (Insulin Glargine,Hum.Rec.Anlog [Toujeo Solostar]) 50 unit SC DAILY [facility] Last Admin: 05/19/17 09:04 Dose: 50 unit Home Med (Empagliflozin [Jardiance]) 10 mg PO DAILY [facility] Ciprofloxacin (Cipro 400mg/200ml Dsw) 400 mg in 200 mls @ 200 mls/hr IVPB Q12 ROX Last Admin: 05/19/17 09:02 Dose: 200 mls/hr Metronidazole (Flagyl 500mg/100ml Ns) 100 mls @ 100 mls/hr IVPB Q8 ROX PRN Reason: Protocol Last Admin: 05/19/17 09:01 Dose: 100 mls/hr Insulin Human Regular (Humulin R) 0 units SC ACHS ROX PRN Reason: Protocol Last Admin: 05/19/17 09:03 Dose: 4 u Metformin HCl (Glucophage) 1,000 mg PO BID [facility] Last Admin: 05/19/17 09:02 Dose: 1,000 mg - Labs Labs: 05/19/17 06:05 05/19/17 06:05 Attending/Attestation - Attestation I have personally seen and examined this patient.: Yes I have fully participated in the care of the patient.: Yes I have reviewed all pertinent clinical information, including history, physical exam and plan: Yes Notes (Text): 05/19/17 10:34 ATTENDING NOTE ATTESTATION PATIENT SEEN AND EXAMINED. CASE DISCUSSED WITH RESIDENT. AGREE WITH FINDINGS AND PLAN.
[2017-05-18] MEDS: metroNIDAZOLE 500mg/100ml NS 100 ML IVPB SCH (16:38)
[2017-05-19] MEDS: metroNIDAZOLE 500mg/100ml NS 100 ML IVPB SCH ×2 (01:02→09:01)
[2017-05-19 06:32] LABS: HEMOGLOBIN 12.2 g/dL (12.0-16.0); MEAN CELL VOLUME 83.2 fl (81.0-99.0); MEAN CORPUSCULAR HEMOGLOBIN 27.5 pg (27.0-31.0); MEAN CORPUSCULAR HGB CONC 33.1 g/dL (33.0-37.0); RBC 4.42 Mil/uL (3.80-5.20); RED CELL DISTRIBUTION WIDTH 16.2 % (11.5-14.5)
[2017-05-19 06:37] LABS: BLOOD UREA NITROGEN 11 mg/dl (7-17); GFR AFRICAN-AMERICAN > 60; GFR NON-AFRICAN AMERICAN > 60
--- NOTE | 2017-05-19 07:33 | CP.PCM.PN ---
<Sofiya Lang - Last Filed: 05/19/17 08:47> Subjective - Date & Time of Evaluation Date of Evaluation: 05/19/17 Time of Evaluation: 07:15 - Subjective Subjective: GI Fellow PGY4 Progress Note Pt seen and evaluated at bedside, pt doing well, she reports had some abdominal discomfort and bloating after eating chicken last night. No nausea, vomiting. Having soft brown stool. No fevers or chills. ROS:A 12pt ROS was negative except as above. Objective - Vital Signs/Intake and Output Vital Signs (last 24 hours): Temp Pulse Resp BP Pulse Ox 98.0 F 81 18 109/65 95 05/19/17 00:11 05/19/17 00:11 05/19/17 00:11 05/19/17 00:11 05/19/17 00:11 - Medications Medications: Current Medications Amlodipine Besylate (Norvasc) 5 mg PO DAILY [facility] Last Admin: 05/18/17 11:32 Dose: 5 mg Atorvastatin Calcium (Lipitor) 40 mg PO HS [facility] Last Admin: 05/18/17 22:30 Dose: 40 mg Dextrose (Dextrose 50% Inj) 0 ml IV STAT PRN; Protocol PRN Reason: Hypoglycemia Protocol Dextrose (Glutose 15) 0 gm PO ONCE PRN; Protocol PRN Reason: Hypoglycemia Protocol Glipizide (Glucotrol Xl) 10 mg PO DAILY [facility] Last Admin: 05/18/17 09:00 Dose: Not Given Glucagon (Glucagen Diagnostic Kit) 0 mg IM STAT PRN; Protocol PRN Reason: Hypoglycemia Protocol Home Med (Dulaglutide [Trulicity]) 0.75 mg SC WE [facility] Home Med (Insulin Glargine,Hum.Rec.Anlog [[place] Michelle]) 50 unit SC DAILY [facility] Home Med (Empagliflozin [Jardiance]) 10 mg PO DAILY [facility] Ciprofloxacin (Cipro 400mg/200ml Dsw) 400 mg in 200 mls @ 200 mls/hr IVPB Q12 [facility] Last Admin: 05/18/17 21:55 Dose: 200 mls/hr Metronidazole (Flagyl 500mg/100ml Ns) 100 mls @ 100 mls/hr IVPB Q8 [facility] PRN Reason: Protocol Last Admin: 05/19/17 01:02 Dose: 100 mls/hr Insulin Human Regular (Humulin R) 0 units SC ACHS [facility] PRN Reason: Protocol Last Admin: 05/18/17 22:00 Dose: Not Given Metformin HCl (Glucophage) 1,000 mg PO BID [facility] Last Admin: 05/18/17 18:26 Dose: Not Given - Labs Labs: 05/19/17 06:05 05/19/17 06:05 - Constitutional Appears: Non-toxic, No Acute Distress - Head Exam Head Exam: ATRAUMATIC, NORMAL INSPECTION, NORMOCEPHALIC - Eye Exam Eye Exam: EOMI, Normal appearance, PERRL Pupil Exam: PERRL - ENT Exam ENT Exam: Mucous Membranes Moist - Neck Exam Neck Exam: Normal Inspection - Respiratory Exam Respiratory Exam: Clear to Ausculation Bilateral, NORMAL BREATHING PATTERN - Cardiovascular Exam Cardiovascular Exam: REGULAR RHYTHM - GI/Abdominal Exam GI & Abdominal Exam: Soft, Normal Bowel Sounds. absent: Distended, Guarding, Tenderness - Extremities Exam Extremities Exam: Full ROM - Back Exam Back Exam: NORMAL INSPECTION - Neurological Exam Neurological Exam: Alert, Awake, Oriented x3 - Psychiatric Exam Psychiatric exam: Normal Affect, Normal Mood - Skin Skin Exam: Dry, Intact, Normal Color, Warm Assessment and Plan - Assessment and Plan (Free Text) Assessment: This is a 71yF who presented for EGD/Colonoscopy as an outpatient found to have perforated diverticulum s/p 3 clips 05/15/17. 1. Perforated diverticulum s/p 3 clips 2. s/p EGD with gastritis 3. Possible Phelgmon formation above site of clips Plan: -Continue supportive care with pain control and anti-emetics -Pt clinically stable with no abdominal pain, fevers, chills, no leukocytosis -Recommend po abx course for total 10 days -Regular diet -Surgical consult recommendations appreciated, no indication for surgery at this time -Pt can follow up outpt with GI in 1 week -Pt can be discharged home from GI perspective. <Della Barker MD - Last Filed: 05/19/17 16:38> Objective - Vital Signs/Intake and Output Vital Signs (last 24 hours): Temp Pulse Resp BP Pulse Ox 98.1 F 82 20 123/78 94 L 05/19/17 08:37 05/19/17 12:45 05/19/17 08:37 05/19/17 12:45 05/19/17 08:37 - Labs Labs: 05/19/17 06:05 05/19/17 06:05 Attending/Attestation - Attestation I have personally seen and examined this patient.: Yes I have fully participated in the care of the patient.: Yes I have reviewed all pertinent clinical information, including history, physical exam and plan: Yes Notes (Text): 05/19/17 16:35 Patient seen in the room this am. In a nutshell this is a 71 year old female, with a past medical history of diabetes, gastrointestinal ulcer, cervical CA and hypertension, who presented as outpatient for polyp surveillance and chronic abdominal pain. Colonoscopy was technically difficult with redundant colon. A colonoscopy in 2014 had similar findings. Multiple maneuvers with extrinsic pressure, and position change did not help to pass recto sigmoid area. A mucosal defect was seen during traversing the scope in recto sigmoid which was closed with [address] abdomen showed intra peritoneal air. Patient was stable and started on IV antibiotics for 48 hours with no sign of peritonitis. She was discharged yesterday after repeat CTAP showed resolution of intraperitoneal air. Radiologist on final read was concerned for phlegmon and she was readmitted. Patient denies any fever, chills, chest pain, shortness of breath or urinary symptoms. No fever and hemodynamically stable. Denies abdominal pain or tenderness. Tolerating regular diet. Discussed Ct findings with radiologist today that shows air resolution and small phlegmon. Complete 10 day course of cipro and flagyl and follow in my office next week. Discussed with Dr Millan- no indication for surgery.
[2017-05-19 08:38] VITALS: RESP 20; TEMP 98.1; O2SAT 94
--- NOTE | 2017-05-19 08:48 | CP.PCM.PN ---
Subjective - Date & Time of Evaluation Date of Evaluation: 05/19/17 Time of Evaluation: 08:46 - Subjective Subjective: Gen Sx: Dr Millan Pt S&E. [facility]. Pt reports mild discomfort yesterday after eating chicken but attributes that to the consistency of the food as opposed to her clinical condition. Has otherwise been tolerating regular diet. Having soft BMs. No blood in the stool. Denies N/V, f/C, SOB or chest pain. OOB and ambulating. Denies any pain in the abdomen. Objective - Vital Signs/Intake and Output Vital Signs (last 24 hours): Temp Pulse Resp BP Pulse Ox 98.1 F 78 20 125/71 94 L 05/19/17 08:37 05/19/17 08:37 05/19/17 08:37 05/19/17 08:37 05/19/17 08:37 - Medications Medications: Current Medications Amlodipine Besylate (Norvasc) 5 mg PO DAILY [facility] Last Admin: 05/18/17 11:32 Dose: 5 mg Atorvastatin Calcium (Lipitor) 40 mg PO HS [facility] Last Admin: 05/18/17 22:30 Dose: 40 mg Dextrose (Dextrose 50% Inj) 0 ml IV STAT PRN; Protocol PRN Reason: Hypoglycemia Protocol Dextrose (Glutose 15) 0 gm PO ONCE PRN; Protocol PRN Reason: Hypoglycemia Protocol Glipizide (Glucotrol Xl) 10 mg PO DAILY [facility] Last Admin: 05/18/17 09:00 Dose: Not Given Glucagon (Glucagen Diagnostic Kit) 0 mg IM STAT PRN; Protocol PRN Reason: Hypoglycemia Protocol Home Med (Dulaglutide [Trulicity]) 0.75 mg SC WE [facility] Home Med (Insulin Glargine,Hum.Rec.Anlog [[place] Michelle]) 50 unit SC DAILY [facility] Home Med (Empagliflozin [Jardiance]) 10 mg PO DAILY [facility] Ciprofloxacin (Cipro 400mg/200ml Dsw) 400 mg in 200 mls @ 200 mls/hr IVPB Q12 [facility] Last Admin: 05/18/17 21:55 Dose: 200 mls/hr Metronidazole (Flagyl 500mg/100ml Ns) 100 mls @ 100 mls/hr IVPB Q8 [facility] PRN Reason: Protocol Last Admin: 05/19/17 01:02 Dose: 100 mls/hr Insulin Human Regular (Humulin R) 0 units SC ACHS [facility] PRN Reason: Protocol Last Admin: 05/18/17 22:00 Dose: Not Given Metformin HCl (Glucophage) 1,000 mg PO BID [facility] Last Admin: 05/18/17 18:26 Dose: Not Given - Labs Labs: 05/19/17 06:05 05/19/17 06:05 - Constitutional Appears: Non-toxic, No Acute Distress - ENT Exam ENT Exam: Mucous Membranes Moist - Respiratory Exam Respiratory Exam: absent: Accessory Muscle Use, Respiratory Distress - Cardiovascular Exam Cardiovascular Exam: REGULAR RHYTHM - GI/Abdominal Exam GI & Abdominal Exam: Soft. absent: Distended, Firm, Guarding, Rigid, Tenderness Assessment and Plan - Assessment and Plan (Free Text) Assessment: 71F with incidental perforation found on colonoscopy; resolved Plan: no surgical intervention planned cont current mgmt PO abx , adv diet per GI clear for discharge surgically, f/u with GI will d/w Dr Monty Cancino, PGY3
[2017-05-19] MEDS: Ciprofloxacin 400mg/200ml D5W 400 MG/200 ML BAG IVPB SCH (09:02)
[2017-05-19] MEDS: GlipiZIDE 10 mg SR Tab PO SCH (09:03)
[2017-05-19] MEDS: Insulin Regular 100 units/ml SC SCH ×2 (09:03→12:43)
--- NOTE | 2017-05-19 09:42 | CP.PCM.PN ---
Subjective - Date & Time of Evaluation Date of Evaluation: 05/19/17 Time of Evaluation: 07:40 - Subjective Subjective: overnight resident performed serial abdominal exams with no tenderness. Objective - Vital Signs/Intake and Output Vital Signs (last 24 hours): Temp Pulse Resp BP Pulse Ox 98.1 F 78 20 125/71 94 L 05/19/17 08:37 05/19/17 08:37 05/19/17 08:37 05/19/17 08:37 05/19/17 08:37 - Medications Medications: Current Medications Amlodipine Besylate (Norvasc) 5 mg PO DAILY [facility] Last Admin: 05/18/17 11:32 Dose: 5 mg Atorvastatin Calcium (Lipitor) 40 mg PO HS [facility] Last Admin: 05/18/17 22:30 Dose: 40 mg Dextrose (Dextrose 50% Inj) 0 ml IV STAT PRN; Protocol PRN Reason: Hypoglycemia Protocol Dextrose (Glutose 15) 0 gm PO ONCE PRN; Protocol PRN Reason: Hypoglycemia Protocol Glipizide (Glucotrol Xl) 10 mg PO DAILY [facility] Last Admin: 05/19/17 09:03 Dose: 10 mg Glucagon (Glucagen Diagnostic Kit) 0 mg IM STAT PRN; Protocol PRN Reason: Hypoglycemia Protocol Home Med (Dulaglutide [Trulicity]) 0.75 mg SC [facility] Home Med (Insulin Glargine,Hum.Rec.Anlog [[place] Solchandni]) 50 unit SC DAILY [facility] Last Admin: 05/19/17 09:04 Dose: 50 unit Home Med (Empagliflozin [Jardiance]) 10 mg PO DAILY [facility] Ciprofloxacin (Cipro 400mg/200ml Dsw) 400 mg in 200 mls @ 200 mls/hr IVPB Q12 [facility] Last Admin: 05/19/17 09:02 Dose: 200 mls/hr Metronidazole (Flagyl 500mg/100ml Ns) 100 mls @ 100 mls/hr IVPB Q8 [facility] PRN Reason: Protocol Last Admin: 05/19/17 09:01 Dose: 100 mls/hr Insulin Human Regular (Humulin R) 0 units SC ACHS [facility] PRN Reason: Protocol Last Admin: 05/19/17 09:03 Dose: 4 u Metformin HCl (Glucophage) 1,000 mg PO BID [facility] Last Admin: 05/19/17 09:02 Dose: 1,000 mg - Labs Labs: 05/19/17 06:05 05/19/17 06:05 Assessment and Plan - Assessment and Plan (Free Text) Plan: The patient is a 71 y/o woman w/ pmh of diabetes, gastrointestinal ulcer, cervical CA and hypertension presents to the ER for reevaluation with new CT findings. 1) Abdominal Pain 2/2 clipped perforated diverticulum - NPO - 2/2 s/p colonoscopy this 05/15/2017, had perforated diverticulum clipped - CT Abdomen & Pelvis IV contrast only:(05/17/17) amorphous rounded soft tissue density in right aspect of the pelvis which abuts cecum and terminal illium. Findings may represent an localized developing phlegmon. Bubbles of air were also noted above the diverticulitis clip. - Ciprofloxacin 400 mg IV Q12h - Metronidazole 500 mg IV Q8h - Surgery consulted, Dr. Millan: Seen and evaluated. cleared. no further sugical intervention at this time. 2) DM2 - HbA1c 8.5% (12/12/2016) - Hold Home meds. NPO currently. On sliding scale 3) HTN - controlled w/ medication - home med: amlodipine 5 mg PO daily - c/w home med 4) HLD - atorvastatin 5) cervical cancer - s/p total hysterectomy >20 years ago 6) Prophylactic measures - DVT: SCDs
--- NOTE | 2017-05-19 11:44 | CP.PCM.DIS ---
Provider - Provider Date of Admission: 05/17/17 22:33 Attending physician: Mercedes Teague MD Time Spent in preparation of Discharge (in minutes): 25 Hospital Course - Lab Results Lab Results: Most Recent Lab Values WBC 5.0 K/uL (4.8-10.8) 05/19/17 06:05 RBC 4.42 Mil/uL (3.80-5.20) 05/19/17 06:05 Hgb 12.2 g/dL (12.0-16.0) 05/19/17 06:05 Hct 36.8 % (34.0-47.0) 05/19/17 06:05 MCV 83.2 fl (81.0-99.0) 05/19/17 06:05 MCH 27.5 pg (27.0-31.0) 05/19/17 06:05 MCHC 33.1 g/dL (33.0-37.0) 05/19/17 06:05 RDW 16.2 % (11.5-14.5) H 05/19/17 06:05 Plt Count 197 K/uL (130-400) 05/19/17 06:05 MPV 9.0 fl (7.2-11.7) 05/17/17 22:05 Neut % (Auto) 74.9 % (50.0-75.0) 05/17/17 22:05 Lymph % (Auto) 16.3 % (20.0-40.0) L 05/17/17 22:05 [place] % (Auto) 7.0 % (0.0-10.0) 05/17/17 22:05 Eos % (Auto) 1.6 % (0.0-4.0) 05/17/17 22:05 Baso % (Auto) 0.2 % (0.0-2.0) 05/17/17 22:05 Neut # (Auto) 5.1 K/uL (1.8-7.0) 05/17/17 22:05 Lymph # (Auto) 1.1 K/uL (1.0-4.3) 05/17/17 22:05 [place] # (Auto) 0.5 K/uL (0.0-0.8) 05/17/17 22:05 Eos # (Auto) 0.1 K/uL (0.0-0.7) 05/17/17 22:05 Baso # (Auto) 0.0 K/uL (0.0-0.2) 05/17/17 22:05 Sodium 142 mmol/l (132-148) 05/19/17 06:05 Potassium 4.3 MMOL/L (3.6-5.0) 05/19/17 06:05 Chloride 103 mmol/L (98-107) 05/19/17 06:05 Carbon Dioxide 29 mmol/L (22-30) 05/19/17 06:05 Anion Gap 14 (10-20) 05/19/17 06:05 BUN 11 mg/dl (7-17) 05/19/17 06:05 Creatinine 0.6 mg/dl (0.7-1.2) L 05/19/17 06:05 Est GFR ( Amer) > 60 05/19/17 06:05 Est GFR (Non-Af Amer) > 60 05/19/17 06:05 POC Glucose (mg/dL) 352 mg/dL (65-110) H 05/19/17 10:39 Random Glucose 261 mg/dL (65-105) H 05/19/17 06:05 Calcium 9.0 mg/dL (8.4-10.2) 05/19/17 06:05 Total Bilirubin 0.4 mg/dl (0.2-1.3) 05/17/17 22:05 AST 23 U/L (14-36) 05/17/17 22:05 ALT 45 U/L (9-52) 05/17/17 22:05 Alkaline Phosphatase 62 U/L (38-126) 05/17/17 22:05 Total Protein 7.0 G/DL (6.3-8.2) 05/17/17 22:05 Albumin 3.7 g/dL (3.5-5.0) 05/17/17 22:05 Globulin 3.3 gm/dL (2.2-3.9) 05/17/17 22:05 Albumin/Globulin Ratio 1.1 (1.0-2.1) 05/17/17 22:05 - Hospital Course Hospital Course: The patient is a 71 y/o woman w/ pmh of diabetes, gastrointestinal ulcer, cervical CA and hypertension presents to the ER for reevaluation with new CT findings. Pt stable. Overnight resident performed serial abdominal exams: nontender. Pt evaluated and cleared by surgery. D/c home to f/u with GI and PCP. Discharge Exam - Head Exam Head Exam: ATRAUMATIC, NORMAL INSPECTION, NORMOCEPHALIC Discharge Plan - Follow Up Plan Condition: FAIR Disposition: HOME/ ROUTINE Instructions: Acute Abdominal Pain (DC) Referrals: [facility] [place] [Outside]
[2017-05-19 12:45] VITALS: BP 123/78; PULSE 82
== END 2017-05-19 14:37 | disposition home or self-care (01) ==
LOC: H.ER 22:07 → H.MEDSURG1 22:33 → INTOOBSV 22:33 → H.ERHOLD 05-18 01:19 → H.MEDSURG1 05-18 01:58
PROVIDERS: ADMIT Family Medicine Geriatric Medicine; ATTEND Family Medicine Geriatric Medicine
DX: R10.30 Lower abdominal pain, unspecified (principal); Z88.0 Allergy status to penicillin; M19.90 Unspecified osteoarthritis, unspecified site; J45.909 Unspecified asthma, uncomplicated; E11.9 Type 2 diabetes mellitus without complications; I10 Essential (primary) hypertension; E78.00 Pure hypercholesterolemia, unspecified; Z85.41 Personal history of malignant neoplasm of cervix uteri; M81.0 Age-related osteoporosis without current pathological fracture; E78.5 Hyperlipidemia, unspecified; K29.70 Gastritis, unspecified, without bleeding
CPT/HCPCS: 36415; 80048; 80053; 82948; 85025; 85027; 99283; G0378; J0744; J1885; J7040